=== PATIENT | female | born 1980 | race Caucasian/White ===

== ENCOUNTER 2017-10-05 05:31 | Emergency (ER) | payer BC ==
[~2017-10-05] VITALS: Ht 160 cm; Wt 79.5 kg
[~2017-10-05 05:31] MED LIST: ALD250 PO; LABE1TAB28 PO; SERT-234 PO
[2017-10-05 05:35] VITALS: Ht 160 cm; Wt 79.5 kg
[2017-10-05] MEDS ORDERED: MoRPHine SULFATE 4 MG/ML 1 ML CARP\\VIAL IV STA (05:43)
[2017-10-05] MEDS ORDERED: ONDANSETRON INJ 2 MG/ML 2 ML VIAL IV STA (05:43)
[2017-10-05] MEDS ORDERED: KETOROLAC TROMETHAMINE 30 MG/ML VIAL IV STA (05:43)
[2017-10-05 06:04] LABS: BASO % 0.5 %; BASO ABS # 0.05 K/uL (0-0.2); COMPLETE YES; EOS % 1.5 %; HEMATOCRIT 34.6 % (37-47); IG% 0.4 %; LYMPH % 20.3 %; LYMPH ABS # 2.08 K/uL (1.2-3.4); MEAN CELL VOLUME 76.7 fL (80-100); MEAN CORPUSCULAR HEMOGLOBIN 23.9 pg (25-34); MEAN CORPUSCULAR HGB CONC 31.2 g/dl (32-36); MEAN PLATELET VOLUME 9.6 fL (7.4-10.4); NEUT % 67.3 %; PLATELET COUNT 250 K/uL (130-400); RED BLOOD COUNT 4.51 M/uL (4.2-5.4); WHITE BLOOD COUNT 10.27 K/uL (4.8-10.8)
[2017-10-05] MEDS ORDERED: [UNRECOGNIZED DRUG - CODE] PO (06:07)
[2017-10-05 06:14] LABS: URINE APPEARANCE CLOUDY (CLEAR); URINE BILIRUBIN NEG (NEG); URINE COLOR YELLOW; URINE EPITHELIAL CELL AUTO >30 /lpf (0-5); URINE NITRITE NEG (NEG); URINE SPECIFIC GRAVITY 1.012 (1.000-1.030); UROBILINOGEN NEG (NEG); ZZUR CULT IF INDIC CLEAN CATCH YES
[2017-10-05] MEDS ORDERED: HYDROmorphone INJ 1 MG/ML SYR IV STA (06:15)
[2017-10-05] MEDS ORDERED: LABETALOL HCL IV 5 MG/ML 20ML IV STA ×3 (06:15→07:12)
[2017-10-05] MEDS ORDERED: METHYLDOPA 250 MG TAB PO STA (06:16)
[2017-10-05 06:26] LABS: BUN/CREATININE RATIO 10.1 (10-20); CALCIUM 8.8 mg/dl (8.5-10.1); CREATININE 1.04 mg/dl (0.60-1.20); POTASSIUM 3.2 mmol/L (3.5-5.1)
[2017-10-05] MEDS ORDERED: SODIUM CHLORIDE 0.9% 1000ML 1,000 ML IV STA (06:52)
[2017-10-05 06:53] LABS: MANUAL MICROSCOPIC REQUIRED? NO; REVIEW REQ? YES
[2017-10-05 07:00] LABS: SULFASALICYLIC ACID NEG (NEG)
--- NOTE | 2017-10-05 07:05 | DIAGNOSTIC IMAGING REPORT ---
PELVIC ULTRASOUND, TRANSABDOMINAL AND TRANSVAGINAL HISTORY: Right-sided pelvic pain. Abnormal CT. r/o torsion COMPARISON: None. FINDINGS: Uterus: Unremarkable. Endometrial stripe: 1.4 cm in thickness. Right ovary: Asymmetrically enlarged measuring 6.7 x 5.8 x 4.9 cm. This appears to be edematous and demonstrates minimal to no blood flow. Therefore, this favors ovarian torsion. There are few small complex cysts and a few small follicles. Left ovary: Normal in size and demonstrates normal color flow. Miscellaneous:Small amount of pelvic free fluid. IMPRESSION: 1. Asymmetrically enlarged right ovary which appears to be edematous and demonstrates minimal to no blood flow. Therefore this is highly suspicious for an ovarian torsion. 2. Normal left ovary. 3. Small amount of pelvic free fluid. 4. These findings were discussed with Dr. Esparza at 7:03 AM on 10/05/2017. Electronically signed by: Herbie Strange M.D. 10/05/2017 7:04 AM Dictated Date/Time: 10/05/2017 7:01 AM
--- NOTE | 2017-10-05 07:09 | EMERGENCY ROOM VISIT NOTE ---
History First contact with patient: 05:42 Chief Complaint: ABDOMINAL PAIN Stated Complaint: ABD PAIN History of Present Illness The patient is a 37 year old female who presents to the Emergency Room with complaints of sudden onset of right side pain that radiates to her groin for the past few hours described as severe, 7 out of 10. Nothing makes it better or worse. No history kidney stones. Patient denies chest pain, dyspnea, fever , chills, cough, congestion, vomiting, diarrhea, urinary symptoms. Menstrual cycle was 3 weeks ago. Patient did not take her blood pressure medicine today. Review of Systems See HPI for pertinent positives & negatives. A total of 10 systems reviewed and were otherwise negative. Past Medical/Surgical History Hypertension, depression Social History Smoking Status: Current Every Day Smoker Alcohol Use: occasionally Drug Use: none Marital Status: Housing Status: lives with significant other Occupation Status: employed Current/Historical Medications Scheduled Labetalol (Normodyne), 400 MG PO DAILY Methyldopa (Aldomet), 500 MG PO DAILY Sertraline (Zoloft), 200 MG PO DAILY Allergies Coded Allergies: No Known Allergies (Unverified , 10/05/17) Physical Exam Vital Signs Date Time Temp Pulse Resp B/P (MAP) Pulse Ox O2 Delivery O2 Flow Rate FiO2 10/05/17 07:00 75 16 225/127 99 Room Air 10/05/17 06:08 74 18 228/130 100 Room Air 10/05/17 05:35 36.5 86 18 204/119 100 Room Air Physical Exam VITALS: Vitals are noted on the nurse's note and reviewed by myself. Vital signs hypertensive GENERAL: White female crying in pain, in no acute distress, nondiaphoretic, well -developed well-nourished. SKIN: The skin was without rashes, erythema, edema, or bruising. There is no tenting of the skin. Capillary reflex less than 2 seconds. HEAD: Normocephalic atraumatic. EARS: External auditory canals clear, tympanic membranes pearly landis without erythema or effusion bilaterally. EYES: Pupils equal round and reactive to light and accommodation. Conjunctivae without injection, sclerae without icterus. Extraocular movements intact. NOSE: Patent, turbinates without inflammation or discharge. MOUTH: Mucous membranes moist. Pharynx without erythema or exudate. Uvula midline. Airway patent. Tongue does not deviate. NECK: Supple without nuchal rigidity. No lymphadenopathy. No thyromegaly. Cervical spine is nontender. No JVD. HEART: Regular rate and rhythm without murmurs gallops or rubs. LUNGS: Clear to auscultation bilaterally without wheezes, rales or rhonchi. No dullness to percussion. No retractions or accessory muscle use. ABDOMEN: Positive bowel sounds x 4. Normal tympanic percussion. Soft, minimally tender right sided flank pain, without masses or organomegaly. Britton sign negative. No guarding or rebound tenderness. No CVA tenderness MUSCULOSKELETAL: No muscle atrophy, erythema, or edema noted. NEURO: Patient was alert and oriented to person place and time. Normal sensation to light and sharp touch. No focal neurological deficits. Medical Decision & Procedures Laboratory Results 10/05/17 05:49 Red Blood Count 4.51, Mean Corpuscular Volume 76.7, Mean Corpuscular Hemoglobin 23.9, Mean Corpuscular Hemoglobin Concent 31.2, Mean Platelet Volume 9.6, Neutrophils (%) (Auto) 67.3, Lymphocytes (%) (Auto) 20.3, Monocytes (%) (Auto) 10.0, Eosinophils (%) (Auto) 1.5, Basophils (%) (Auto) 0.5, Neutrophils # (Auto ) 6.92, Lymphocytes # (Auto) 2.08, Monocytes # (Auto) 1.03, Eosinophils # (Auto ) 0.15, Basophils # (Auto) 0.05 10/05/17 05:49 Test 10/05/17 05:45 10/05/17 05:49 Urine Color YELLOW Urine Appearance CLOUDY (CLEAR) Urine pH 8.0 (4.5-7.5) Urine Specific [place] 1.012 (1.000-1.030) Urine Protein NEG (NEG) Urine Glucose (UA) NEG (NEG) Urine Ketones NEG (NEG) Urine Occult Blood NEG (NEG) Urine Nitrite NEG (NEG) Urine Bilirubin NEG (NEG) Urine Urobilinogen NEG (NEG) Urine Leukocyte Esterase NEG (NEG) Urine Test NEG (NEG) White Blood Count 10.27 K/uL (4.8-10.8) Red Blood Count 4.51 M/uL (4.2-5.4) Hemoglobin 10.8 g/dL (12.0-16.0) Hematocrit 34.6 % (37-47) Mean Corpuscular Volume 76.7 fL (80-100) Mean Corpuscular Hemoglobin 23.9 pg (25-34) Mean Corpuscular Hemoglobin Concent 31.2 g/dl (32-36) Platelet Count 250 K/uL (130-400) Mean Platelet Volume 9.6 fL (7.4-10.4) Neutrophils (%) (Auto) 67.3 % Lymphocytes (%) (Auto) 20.3 % Monocytes (%) (Auto) 10.0 % Eosinophils (%) (Auto) 1.5 % Basophils (%) (Auto) 0.5 % Neutrophils # (Auto) 6.92 K/uL (1.4-6.5) Lymphocytes # (Auto) 2.08 K/uL (1.2-3.4) Monocytes # (Auto) 1.03 K/uL (0.11-0.59) Eosinophils # (Auto) 0.15 K/uL (0-0.5) Basophils # (Auto) 0.05 K/uL (0-0.2) RDW Standard Deviation 48.3 fL (36.4-46.3) RDW Coefficient of Variation 17.1 % (11.5-14.5) Immature Granulocyte % (Auto) 0.4 % Immature Granulocyte # (Auto) 0.04 K/uL (0.00-0.02) Anion Gap 10.0 mmol/L (3-11) Est Creatinine Clear Calc Drug Dose 74.0 ml/min Estimated GFR () 79.5 Estimated GFR (Non- 68.6 BUN/Creatinine Ratio 10.1 (10-20) Calcium Level 8.8 mg/dl (8.5-10.1) Medications Administered Medications (Trade) Dose Ordered Sig/[place] Route Start Time Stop Time Status Last Admin Dose Admin Ketorolac Tromethamine (Toradol Inj) 30 mg NOW STAT IV 10/05/17 05:43 10/05/17 05:45 DC 10/05/17 05:53 30 MG Ondansetron HCl (Zofran Inj) 4 mg NOW STAT IV 10/05/17 05:43 10/05/17 05:45 DC 10/05/17 05:52 4 MG Morphine Sulfate (MoRPHine SULFATE INJ) 4 mg NOW STAT IV 10/05/17 05:43 10/05/17 05:45 DC 10/05/17 05:53 4 MG Hydromorphone HCl (Dilaudid Inj) 1 mg NOW STAT IV 10/05/17 06:15 10/05/17 06:17 DC 10/05/17 06:24 1 MG Labetalol HCl (Normodyne IV) 10 mg NOW STAT IV 10/05/17 06:15 10/05/17 06:17 DC 10/05/17 06:26 10 MG Sodium Chloride 1,000 ml @ 999 mls/hr Q1H1M STAT IV 10/05/17 06:52 10/05/17 07:52 10/05/17 06:52 999 MLS/HR ED Course Prior records/ancillary studies reviewed. Triage Nursing notes reviewed. Additional history obtained from family. The patient's history was concerning for abdominal pain. Differential diagnosis: Etiologies such as appendicitis, torsion, cyst, diverticulitis, PUD, biliary pathology, UTI, pancreatitis, obstruction, mesenteric ischemia, aortic pathology , infections, inflammatory bowel disease, renal colic, as well as others were entertained. Physical examination findings: As above. ER treatment provided: Morphine, Toradol, Zofran, Dilaudid, labetalol On reassessment the patient felt better. Diagnostics interpreted by me: The labs revealed anemia, negative . Negative urine Imaging studies: HISTORY: Right-sided pelvic pain. Abnormal CT. r/o torsion COMPARISON: None. FINDINGS: Uterus: Unremarkable. Endometrial stripe: 1.4 cm in thickness. Right ovary: Asymmetrically enlarged measuring 6.7 x 5.8 x 4.9 cm. This appears to be edematous and demonstrates minimal to no blood flow. Therefore, this favors ovarian torsion. There are few small complex cysts and a few small follicles. Left ovary: Normal in size and demonstrates normal color flow. Miscellaneous:Small amount of pelvic free fluid. IMPRESSION: 1. Asymmetrically enlarged right ovary which appears to be edematous and demonstrates minimal to no blood flow. Therefore this is highly suspicious for an ovarian torsion. 2. Normal left ovary. 3. Small amount of pelvic free fluid. 4. These findings were discussed with Dr. Esparza at 7:03 AM on 10/05/2017. Electronically signed by: Herbie Strange M.D. CT ABDOMEN & PELVIS Without Contrast: No obstructing urinary tract calculus or hydronephrosis. Small nonobstructing left renal calculi. Mild bladder wall thickening versus partial distention. Correlate for cystitis. Asymmetric enlarged right ovary with multiple peripheral follicles and a dominant 2.8 cm follicle or cyst. Small amount of free fluid surrounding it and pelvis. May represent right ovarian torsion. Possible twisting of the pedicle. Series 3, image 323 and series 3S, image 67 etc. Normal appendix. Colonic diverticulosis. Small hiatal hernia Radiologist: Juancarlos Goyal M.D. Consultation: A consultation was placed with the OB, Dr Hernandez. The case was discussed and diagnostics were reviewed. The patient was evaluated in the ER for further treatment. Exam and history seem consistent with ovarian torsion with elevated blood pressure. OB was paged and will come down and evaluate the patient. They will come down and evaluate the patient. Patient is given multiple rounds of labetalol for her hypertension. She last ate at 8 PM. Nothing to drink since. By the evaluation outlined above emergent etiologies such as appendicitis, diverticulitis, PUD, biliary pathology, UTI, pancreatitis, obstruction, mesenteric ischemia, aortic pathology, infections, inflammatory bowel disease, renal colic, as well as others were deemed relatively unlikely. The pt informed about the findings as listed above. All questions were answered and pleased with the treatment. Case reviewed with my attending. Medical Decision As above Impression Primary Impression: Torsion of right ovary and ovarian pedicle Departure Information Dispostion Being Evaluated By Surgeon Condition GOOD Referrals Sadi Christy M.D. ([facility]) (PCP) Patient Instructions My [facility]
--- NOTE | 2017-10-05 07:31 | DIAGNOSTIC IMAGING REPORT ---
ABDOMEN AND PELVIS CT WITHOUT CONTRAST CT DOSE: 838.12 mGy.cm HISTORY: right flank pain TECHNIQUE: Multiaxial CT images of the abdomen and pelvis were performed without the use of intravenous and oral contrast according to the standard department stone protocol. A dose lowering technique was utilized adhering to the principles of ALARA. COMPARISON STUDY: None. FINDINGS: The lung bases are clear. No fractures within the visualized osseous structures. The unenhanced liver, gallbladder, spleen, adrenal glands, and pancreas are unremarkable. No retroperitoneal lymphadenopathy. There is a punctate stone within the left kidney. No right renal calculi. No ureteral calculi. No hydronephrosis. The bladder is unremarkable. Suboptimal evaluation for bowel pathology due to the lack of intravenous and oral contrast. However, there is no definite bowel wall thickening or obstruction. There are few colonic diverticula. Normal appendix. Small amount of pelvic free fluid. The uterus and left ovary are within normal limits. There is an enlarged and edematous appearing right ovary with peripheral follicles. This measures 6.2 cm. IMPRESSION: 1. Enlarged and edematous appearing right ovary which is concerning for ovarian torsion. This is better appreciated on the same day pelvic ultrasound. 2. Small amount of pelvic free fluid. 3. Left-sided nephrolithiasis. No hydronephrosis. Electronically signed by: Herbie Strange M.D. 10/05/2017 7:29 AM Dictated Date/Time: 10/05/2017 7:27 AM
[2017-10-05] MEDS ORDERED: DEXAMETHASONE SOD INJ 4 MG/ML VIAL ONE (07:36)
[2017-10-05] MEDS ORDERED: PROPOFOL IV EMULSION 10 MG/ML 20 ML VIAL IV ONE (07:36)
[2017-10-05] MEDS ORDERED: LIDOCAINE HCL 2% 2 ML VIAL (20MG/ML) ONE (07:36)
[2017-10-05] MEDS ORDERED: GLYCOPYRROLATE INJ 0.2 MG/ML VIAL ONE (07:36)
[2017-10-05] MEDS ORDERED: NEOSTIGMINE METHYLSULFATE 5 MG/5 ML SYR ONE (07:36)
[2017-10-05] MEDS ORDERED: ONDANSETRON INJ 2 MG/ML 2 ML VIAL ONE (07:36)
[2017-10-05] MEDS ORDERED: FENTANYL CITRATE INJ 50 MCG/1 ML 2 ML VIAL ONE (07:37)
[2017-10-05] MEDS ORDERED: MIDAZOLAM HCL 1 MG/ML 2ML VIAL ONE (07:37)
[2017-10-05 07:42] VITALS: O2SAT 97
[2017-10-05] MEDS ORDERED: ONDANSETRON INJ 2 MG/ML 2 ML VIAL IV PRN ×2 (07:45→09:45)
[2017-10-05] MEDS ORDERED: PHENYLEPHRINE 100MCG/ML 5ML SYR IV PRN (07:45)
[2017-10-05] MEDS ORDERED: ATROPINE SULFATE 0.1 MG/ML 5ML SYR IV PRN (07:45)
[2017-10-05] MEDS ORDERED: EpHEDrine SULFATE INJ 50 MG/ML AMP IV PRN (07:45)
[2017-10-05] MEDS ORDERED: HYDROmorphone INJ 2 MG/ML SYR/VIAL IV PRN (07:45)
[2017-10-05] MEDS ORDERED: BUPIVACAINE 0.5 % 5 MG/1 ML MPF 30ML VIAL ONE (07:47)
--- NOTE | 2017-10-05 07:47 | HISTORY & PHYSICAL EXAMINATION ---
DATE OF ADMISSION: 10/05/2017 HISTORY OF PRESENT ILLNESS: Yulia presented to the ER with acute right sided left lower quadrant pain and it was intense 10/10 and she did not have an appetite and had some nausea. She presented to the Emergency Room in the icer air conditioning, ultrasound was performed revealing a torsed right ovary. In fact report suggests no blood flow to the ovary and suggested high suspicion to it. The overall size is 6.7 x 5.8 x 4.9 cm. The other ovary, left ovary is normal. PAST MEDICAL HISTORY: The patient is known to our practice, has had 2 prior vaginal deliveries with us. She also has a history of hypertension in the past and takes labetalol mouth and methyldopa. SOCIAL HISTORY: She is . FAMILY HISTORY: Noncontributory. REVIEW OF SYSTEMS: Negative. PHYSICAL EXAMINATION: VITAL SIGNS: Her blood pressure is elevated which is being treated by the Emergency Room with IV labetalol. CHEST: Clear. CARDIOVASCULAR: Normal rate and rhythm. No audible murmur. ABDOMEN: Tender, especially in the right lower quadrant. Bowel sounds positive. No masses palpated. PELVIC: Deferred at this time as she is exquisitely tender and we have ultrasound report. IMPRESSION AND PLAN: I have recommended laparoscopy with possible removal of the right ovary and fallopian tube. We did talk about possible untwisting of the ovary as well as an option if that was possible depending on the viability of the ovary. We also discussed sometimes that in fact this may be the left ovary which is pushing over the right side, so I did consent her for removal of 1 ovary which was the ovary which was diseased obviously. We would assess whether this was left or right, it is suspected to be the right. Discussed risks including risks of infection, bleeding, injury to internal organs, hernia and discussed alternatives, although with torsion I really feel this is the recommended approach and she agrees.
[2017-10-05] MEDS ORDERED: CEFAZOLIN 2000MG IV PUSH 10 ML IV SCH (08:00)
[2017-10-05] MEDS ORDERED: CEFAZOLIN SOD 1 GM VIAL ONE (08:44)
[2017-10-05] MEDS ORDERED: LABETALOL HCL IV 5 MG/ML 20ML IV ONE ×4 (08:44→10:29)
[2017-10-05] MEDS ORDERED: ROCURONIUM BROMIDE 10 MG/ML 5 ML VIAL IV ONE (09:10)
[2017-10-05] MEDS ORDERED: SODIUM CHLORIDE 0.9% 1000ML 1,000 ML IV SCH (09:32)
--- NOTE | 2017-10-05 09:34 | [facility] Post Operative Brief Note ---
Immediate Operative Summary Operative Date Oct 05, 2017. Pre-Operative Diagnosis Right Ovarian Torsion Post-Operative Diagnosis Right Ovarian Torsion Procedure(s) Performed Laparoscopic Right Salpingo-Oopherectomy Surgeon Dr. Isabel Hernandez Rigging Man Surgeon(s) Dr. Isabel Su Estimated Blood Loss 10mL Findings Torsed, non viable right ovary and tube Specimens A: Right ovary & Right Fallopian Tube Drains None Anesthesia General Complication(s) None Disposition Recovery Room / PACU
[2017-10-05] MEDS ORDERED: OXYC-57 PO ×3 (09:35→09:50)
[2017-10-05] MEDS ORDERED: MTR600X PO ×3 (09:35→09:50)
--- NOTE | 2017-10-05 09:35 | Discharge Instructions ---
Discharge Instructions Date of Service Oct 05, 2017. Admission Reason for Admission: Abd Pain Discharge Discharge Diagnosis / Problem: ovarian torsion Discharge Goals Goal(s): Routine recovery after surgery Activity Recommendations Activity Limitations: per Instructions/Follow-up section . Instructions / Follow-Up Instructions / Follow-Up ACTIVITY RECOMMENDATIONS: * Rest the first 2-3 days. You should be back to your normal activity levels by day 3. * No heavy lifting for 2 weeks. * No intercourse, tampons or douching for 1-2 weeks. * You may shower the next day. * Do not drive anytime that you are taking narcotic pain medicines. RETURN TO SCHOOL/WORK: * May return to school or work after 2-3 days. DIET: Nausea may occur in the immediate post-operative period. If so, take clear liquids such as tea, bouillon, apple juice until all nausea has subsided, then resume usual diet. MEDICATIONS: Resume previous medications unless instructed otherwise by your surgeon. Ibuprofen 200mg 2-3 tablets every 4-6 hours as needed -- OR -- Aleve 2 tablets every 8-12 hours as needed for post-operative discomfort Medications are over the counter. Tylenol may be used if above medications are contraindicated or not preferred. Medication should be taken with food or milk. Do not take on an empty stomach. SPECIAL CARE INSTRUCTIONS: * Check temperature twice daily for one week. report any elevation over 101 degrees. * You may experience some vagina spotting and/or bleeding. This is normal for 1 -2 weeks and should not be heavier than a normal period. If it is unusual in amount, call your physician. * Post-operative discomfort may consist of a sore throat, a "bloated" feeling and pain in the shoulders. these are normal symptoms, which usually only last for 2-3 days. * Remove band-aids tomorrow and shower. There is no need to replace band-aids unless there is drainage or discomfort. FOLLOW UP VISIT: Call your doctor's office for a post-operative 2 week visit if not already scheduled. Current Hospital Diet Patient's current hospital diet: Discharge Diet Recommended Diet: Regular Diet Procedures Procedures Performed: Laparoscopic Right Salpingo-Oopherectomy Pending Studies Studies pending at discharge: no Medical Emergencies . Who to Call and When: Medical Emergencies: If at any time you feel your situation is an emergency, please call 911 immediately. . Non-Emergent Contact Non-Emergency issues call your: Community Health Advisor . . "Provider Documentation" section prepared by Travis Hernandez. . VTE Core Measure Inpt VTE Proph given/why not?: Jason Khan, SCD's
[2017-10-05] MEDS ORDERED: IBUPROFEN 600 MG TAB PO PRN (09:45)
[2017-10-05] MEDS ORDERED: KETOROLAC TROMETHAMINE 30 MG/ML VIAL IV. PRN (09:45)
[2017-10-05] MEDS ORDERED: OXYCODONE/ACETAMINOPHEN 5-325 TAB PO PRN ×2 (09:45)
[2017-10-05] MEDS ORDERED: PROMETHAZINE HCL INJ 25 MG in SODIUM CHLORIDE 0.9% 50ML 50 ML IV PRN (09:45)
--- NOTE | 2017-10-05 10:04 | Anesthesiology Progress Note ---
Anesthesia Post Op Note Date & Time Oct 05, 2017 at 10:04 Vital Signs Pain Intensity: 0 Vital Signs Past 12 Hours Date Time Temp Pulse Resp B/P (MAP) Pulse Ox O2 Delivery O2 Flow Rate FiO2 10/05/17 09:47 36.5 75 16 159/88 99 Oxymask 10 10/05/17 07:51 68 192/117 10/05/17 07:42 37.0 67 16 192/115 97 10/05/17 07:38 78 16 202/119 10/05/17 07:28 73 16 207/123 97 10/05/17 07:10 68 16 192/115 96 10/05/17 07:01 79 10/05/17 07:00 75 16 225/127 99 Room Air 10/05/17 06:08 74 18 228/130 100 Room Air 10/05/17 05:35 36.5 86 18 204/119 100 Room Air Notes Mental Status: alert / awake / arousable, participated in evaluation Pt Amnestic to Procedure: Yes Nausea / Vomiting: adequately controlled Pain: adequately controlled Airway Patency, RR, SpO2: stable & adequate BP & HR: stable & adequate Hydration State: stable & adequate Anesthetic Complications: no major complications apparent
--- NOTE | 2017-10-05 10:08 | OPERATIVE REPORT ---
DATE OF OPERATION: 10/05/2017 PREOPERATIVE DIAGNOSIS: Right ovarian torsion. POSTOPERATIVE DIAGNOSIS: Right ovarian torsion. PROCEDURE: Laparoscopic right salpingo-oophorectomy. SURGEON: Dr. Hernandez. BRICK CARRIER: Dr. Su. ESTIMATED BLOOD LOSS: 10 mL FINDINGS: Torsed nonviable right ovary and tube. SPECIMENS: Right ovary and fallopian tube. DRAINS: None. ANESTHETIC: General. COMPLICATIONS: None. DISPOSITION: Recovery room. The patient was given a general anesthetic, prepped and draped in dorsolithotomy position in [facility]. IV Ancef given as preoperative antibiotics as it was not an emergency surgery. Mayberry catheter placed in her bladder and a uterine manipulator with an acorn device was attached to her cervix with an Allis clamp. Gloves changed and a subumbilical incision made with scalpel. Using Willoughby open technique, we did a cut down using scalpel and then Metzenbaum to cut through the fascia in the midline, splitting the rectus muscles and entering the peritoneal cavity without difficulty. Blunt-tipped Temo trocar then placed into the peritoneal cavity, balloon inflated to secure the port and then CO2 gas used to insufflate the abdomen. FINDINGS: Upper abdomen normal, no sign of visceral organ injury. Deep Trendelenburg position obtained. The right adnexa was abnormal. It was torsed. It was nonviable. It was purple and dusky. Pictures taken for documentation. It looked like it was pretty clear as well that the IP ligament had torsed as well. With this and with the patient's consent to remove the right ovary, we made a clinical decision to remove the right ovary. Laparoscopic 5-mm port placed in the left and right side. At this stage, I was then able to use a Harmonic scalpel and a nontraumatic grasper. We elevated the ovary, identified the ureter on the right side. It was well away from the IP ligament. I was able to use the Harmonic scalpel to coagulate and transect the ovarian artery and vein proximal to the right ovary. Care was taken to elevate the ovary and keep it away from the ureter. Same process on the distal blood supply and then ovary was removed from its attachments on the pelvic sidewall as well. Once it was free, I could see the ureter was peristalsing nicely below it, and we were well away from the site of surgery. Ovary was placed into the cul-de-sac for a second and then we placed a 5-mm scope after removing the Harmonic scalpel and then a 10-mm bag was then placed through the umbilical port. The specimen was then placed in the bag and then the bag was pulled up to the umbilical incision. This specimen was removed in pieces, but inside of the bag, so there was no spillage and then I was finally able to remove the whole specimen inside the bag once I had pared down the size of the specimen. At this stage, we visualized the pelvis, the ovarian pedicles were hemostatic and we did do a low carbon dioxide test. After generous irrigation and suction with sterile saline, case was complete. I removed the instruments and ports under direct visualization, gas was allowed to escape. Fascia and the umbilical incision injected with 0.5% Marcaine as well as the 5-mm incisions. Fascia closed carefully with several [id number] Vicryls and then subcutaneous deep fat closure as well on the umbilical incision, 4-0 subcuticular Monocryl used to close the skin incisions and Dermabond. Instruments removed from the cervix and vagina. Mayberry catheter removed and urine was clear at the end of the procedure. I attest to the content of the Intraoperative Record and any orders documented therein. Any exception s are noted below.
[2017-10-05] MEDS ORDERED: NURSING VERBAL MED ORDER ONE ×2 (10:45→11:00)
[2017-10-05] MEDS ORDERED: HydrALAZINE HCL 20 MG/ML VIAL ONE (11:00)
[2017-10-05 11:27] VITALS: BP 152/91; TEMP 36.6; O2SAT 97
[2017-10-05 11:37] VITALS: PULSE 81
[2017-10-05 12:06] VITALS: BP 164/95; TEMP 36.5; O2SAT 97
== END 2017-10-05 07:56 | disposition home or self-care (01) ==
LOC: C.EDB 05:32
DX: N83.511 Torsion of right ovary and ovarian pedicle (principal); I10 Essential (primary) hypertension; F32.9 Major depressive disorder, single episode, unspecified; Z79.899 Other long term (current) drug therapy

== ENCOUNTER → 2018-01-02 | Outpatient (CLI) | payer BC ==
[~2018-01-02] MED LIST changes: -ALD250 PO; +MTR600X PO; +OXYC-57 PO; +[UNRECOGNIZED DRUG - CODE] PO
== END | disposition home or self-care (01) ==
LOC: C.PAPS 16:18
PROVIDERS: ATTEND Obstetrics & Gynecology
DX: Z01.419 Encounter for gynecological examination (general) (routine) without abnormal findings (principal)

== ENCOUNTER → 2018-01-16 | Outpatient (CLI) | payer BC | END | disposition home or self-care (01) | LOC: C.LABSPEC 13:28 | PROVIDERS: ATTEND Physician Assistant | DX: Z30.430 Encounter for insertion of intrauterine contraceptive device (principal) ==

== ENCOUNTER 2019-02-12 09:51 | Inpatient (IN) ==
[2019-02-12 10:51] LABS: Basophils # (auto) 0.05 K/uL (0-0.2); Basophils % (auto) 0.7 %; Eosinophils # (auto) 0.12 K/uL (0-0.5); Eosinophils % (auto) 1.7 %; Hematocrit (blood only) 42.3 % (37-47); Hemoglobin 14.9 g/dL (12.0-16.0); Immature Granulocytes # (auto) 0.01 K/uL (0.00-0.02); Immature Granulocytes % (auto) 0.1 %; Lymphocytes # (auto) 1.49 K/uL (1.2-3.4); Lymphocytes % (auto) 21.1 %; Mean Corpuscular Hgb Conc 35.2 g/dL (32-36); Mean Corpuscular Volume 96.6 fL (80-100); Mean Platelet Volume 11.1 fL (7.4-10.4); Monocytes % (auto) 8.5 %; Neutrophils % (auto) 67.9 %; Platelet Count 198 K/uL (130-400); RDW Coefficient of Variation 13.3 % (11.5-14.5); RDW Standard Deviation 46.6 fL (36.4-46.3); Red Blood Count 4.38 M/uL (4.2-5.4); White Blood Count 7.07 K/uL (4.8-10.8)
--- NOTE | 2019-02-12 11:00 | XRay Report ---
XR chest 1V portable CLINICAL HISTORY: Chest Pain dyspnea COMPARISON STUDY: No previous studies for comparison. FINDINGS: The bones soft tissues and hemidiaphragms are normal. The cardiomediastinal silhouette is n ormal. The lungs are clear. The pulmonary vasculature is normal. IMPRESSION: Negative chest. The above report was generated using voice recognition software. It may contain grammatical, syntax or spelling errors. Electronically signed by: Diego Ramey M.D. 02/12/2019 10:58 AM
[2019-02-12 11:15] LABS: Albumin Level 4.1 gm/dl (3.4-5.0); BUN Creatinine Ratio 11.2 (10-20); Calcium 9.5 mg/dl (8.5-10.1); Est GFR (Non-African American) 53.5; Potassium 3.4 mmol/L (3.5-5.1)
[2019-02-12 11:18] LABS: Albumin Globulin Ratio 1.1 (0.9-2); Bilirubin,Total 0.9 mg/dl (0.2-1); Globulin 3.9 gm/dl (2.5-4.0)
[2019-02-12] MEDS ORDERED: cloNIDine HCl 0.1 MG TAB PO ONE (11:44)
[2019-02-12] MEDS ORDERED: LABETALOL HCL IV 5 MG/ML 20ML IV STA ×2 (12:23→16:38)
--- NOTE | 2019-02-12 12:36 | History & Physical Report ---
Date of Service February 12, 2019 Assessment & Plan (1) Hypertensive urgency: This is a 38-year-old female with a PMH of hypertension and depression who presents from cardiology clinic with hypertensive urgency/emergency with BP of 250/140. -In setting of long-standing history of hypertension for the past 20 years -Renal artery duplex was performed in 2006, which was normal -Current regimen of Labetalol 200mg BID (but only taking HS), Methyldopa (has been on backorder for 3 weeks) -Denies any lightheadedness, visual changes, nausea, vomiting or chest pain -EKG with T wave abnormalities in lateral leads, troponin normal, no chest pain -Given Clonidine 0.1mg PO in the ED as well as IV Labetalol 10mg x 1 with repeat BP was 196/122 -Trend troponin, monitor on telemetry, repeat EKG ordered, 2D echo -Discussed with Dr. Jason. Will transition to amlodipine and Lopressor, with clonidine 0.1mg Q6H PRN for SBP >170 (2) Acute kidney injury: In the setting of hypertensive urgency . Cr of 1.27 (baseline Cr ~0.9) -Monitor with daily BMP -Avoid nephrotoxic agents (3) Depression: Stable. Continue Zoloft DVT Ppx: SCDs Code status: FULL PCP: Jaelyn Dispo: Admitted to telemetry. Plan to return home once medically stable. Patient seen in collaboration with Dr. Zamora. Please see addendum. History of Present Illness Chief Complaint: hypertensive emergency Primary Care Provider: Sadi Christy MD This is a 38-year-old female with a PMH of hypertension and depression who presents from cardiology clinic with hypertensive urgency/emergency. Patient with long-standing history of hypertension for the past 20 years. Renal artery duplex was performed in 2006, which was normal. Has been maintained on methyldopa and labetalol for the past 7 years successfully, until 3 weeks ago when methyldopa was on back order. Patient does not check blood pressure at home but went to clinic appointment today to discuss antihypertensive medication and BP was found to be 250/140 with similar repeat pressures. Denies any headache, vision changes, chest pain or lower extremity edema. An EKG was performed in clinic, which showed normal sinus rhythm with inferior T wave depression/inversion due to possible strain. Patient was sent to ED for further treatment of blood pressure and EKG changes. Patient is prescribed labetalol 200 twice daily but has only been taking 200 mg at night. Reports trying metoprolol in the past as well as lisinopril, which was discontinued due to at that time. Was given Clonidine 0.1mg PO in the ED as well as IV Labetalol 10mg x 1. Repeat BP was 196/122. Endorsing mild frontal headache initially but it has since improved. Denies lightheadedness, visual changes, chest pain, shortness of breath, nausea, vomiting, abdominal pain or lower extremity swelling. Allergies Allergy/AdvReac Type Severity Reaction Status Date / Time No Known Allergies Allergy Unverified 02/12/19 10:21 Home Medications Home Medications Medication Instructions Recorded Confirmed Type sertraline [Zoloft] 50 mg PO DAILY 02/12/19 02/12/19 History amlodipine 10 mg PO DAILY #30 tab 02/15/19 Rx labetalol 400 mg PO BID 30 Days #120 tab 02/15/19 Rx spironolactone 25 mg PO QAM 30 Days #30 tab 02/15/19 Rx Past Med/Surg History Medical History Depression (Chronic) HTN (hypertension) (Chronic) Ovarian torsion (Resolved) Surgical History S/P removal of right ovary (Resolved) 2/2 ovarian torsion in 2017 Family History Father Crohn's disease Lung cancer Mother Breast cancer Hypertension Social History Preferred Language: Norwegian Beliefs That Will Affect Care: None Current Living Situation: Spouse and Family Other Information That Helps Us Care for You: No Feels Safe at Home: Yes Safety Concerns: Feels Safe At This Time Smoking Status: Former smoker Hx Alcohol Use: Yes Hx Substance Use: No Review of Systems All systems reviewed & are unremarkable except as noted in HPI & below Physical Exam Vital Signs (Past 24 Hours): Last Vital Signs Temp 36.6 C 02/12/19 09:53 Pulse 92 H 02/12/19 11:50 Resp 16 02/12/19 11:50 BP 231/134 H 02/12/19 11:50 Pulse Ox 99 02/12/19 09:53 Physical Exam: General Appearance: WD/WN, no apparent distress Head: normocephalic, atraumatic Eyes: normal inspection, PERRL, EOMI ENT: hearing grossly normal, pharynx normal (moist mucous membranes) Neck: supple, no JVD, no adenopathy Respiratory/Chest: lungs clear to auscultation. No wheezes, rales or rhonci. No respiratory distress or accessory muscle use Cardiovascular: regular rate, rhythm, no murmur, normal peripheral pulses Abdomen/GI: normal bowel sounds, soft, non-tender to palpation Extremities/Musculoskelatal: normal inspection, no calf tenderness, normal capillary refill, no pedal edema Neurologic/Psych: alert, normal mood/affect, oriented x 3 Skin: normal color, warm/dry Results & Data Laboratory Results Short CBC 02/12/19 Range/Units 10:35 WBC 7.07 (4.8-10.8) K/uL Hgb 14.9 (12.0-16.0) g/dL Hct 42.3 (37-47) % Plt Count 198 (130-400) K/uL BMP 02/12/19 10:35 Sodium 137 Potassium 3.4 L Chloride 103 Carbon Dioxide 28 BUN 14 Creatinine 1.27 H Glucose 86 Calcium 9.5 Liver Function 02/12/19 Range/Units 10:35 Total Bilirubin 0.9 (0.2-1) mg/dl AST 31 (15-37) U/L ALT 41 (12-78) U/L Alkaline Phosphatase 114 (45-117) U/L Albumin 4.1 (3.4-5.0) gm/dl Diagnostic Findings CXR: IMPRESSION: Negative chest. ECG Rhythm: normal sinus Change: the following changes noted Additional Comments: Nonspecific T wave abnormality now evident in Lateral leads Supervising Physician Co-Signing Physician Notes Pt was seen and examined. Agreed with Bailee ANTHONY exam, assessment and plan. Pt was seen from cardiology office for elevated blood pressure 250/140. Received Labetalol and clonidine in the ER. Pt denies any symptoms. Will start on metoprolol 50mg and amlodipine. Case discussed with cardiology. Will monitor closely in tele. Will get an echo. MD Sera.
[2019-02-12] MEDS ORDERED: POLYETHYLENE (MIRALAX) 17 GM PACK PO PRN (16:26)
[2019-02-12] MEDS ORDERED: ACETAMINOPHEN 325 MG TAB PO PRN (16:26)
[2019-02-12] MEDS ORDERED: ONDANSETRON INJ 2 MG/ML 2 ML VIAL IV PRN (16:26)
--- NOTE | 2019-02-12 16:49 | Cardiology Consultation ---
Date of Consultation February 12, 2019 Assessment & Plan (1) Hypertensive urgency: I agree with the current treatment of the patient's hypertension. I do not believe that long-term labetalol and methyldopa for the best drugs for this young female. I agree with starting metoprolol and amlodipine. We will have to see how her blood pressure response to these medications. In the past she has had a workup for secondary causes however it has been several years and I think it is worth doing a renal ultrasound and remeasuring catecholamines along with aldosterone and renin levels. She should have a urine analysis for protein. Also she should have a urine tox screen performed. Due to her abnormal EKG and echocardiogram will also be obtained. Further evaluation and treatment following the above. (2) Acute kidney injury: (3) Cardiac disease: History of Present Illness Attending Physician: Katie Zamora MD History of Present Illness This is a 38-year-old female who has had difficult to control hypertension since age 20. She had some difficulties during and was placed on labetalol and methyldopa. She has been on these medications for several years. Recently she ran out of her methyldopa and has not taken this medication for 2 weeks. She was seen in the clinic today by Joan Haile and she was markedly hypertensive and referred to the hospital for hypertensive emergency. Patient states that she has a slight headache but no chest pain or shortness of breath. She did have EKG changes in the clinic suggesting LVH with strain. The patient has had in the past a workup for secondary causes but it has been several years. Allergies Allergy/AdvReac Type Severity Reaction Status Date / Time No Known Allergies Allergy Unverified 02/12/19 10:21 Home Medications Home Medications Medication Instructions Recorded Confirmed Type labetalol 200 mg PO BID 02/12/19 02/12/19 History sertraline [Zoloft] 50 mg PO DAILY 02/12/19 02/12/19 History Patient History Medical History Depression (Chronic) HTN (hypertension) (Chronic) Ovarian torsion (Resolved) Surgical History S/P removal of right ovary (Resolved) 2/2 ovarian torsion in 2017 Family History Father Crohn's disease Lung cancer Mother Breast cancer Hypertension Social History Preferred Language: [place] Communication Ability: Effective Rn Liaison Required: No Beliefs That Will Affect Care: None Current Living Situation: Spouse and Family Other Information That Helps Us Care for You: No Feels Safe at Home: Yes Safety Concerns: Feels Safe At This Time Smoking Status: Former smoker Hx Alcohol Use: Yes Hx Substance Use: No Review of Systems Review of Systems: See HPI for pertinent positives. All other 10 point review of systems are negative. Physical Exam Vital Signs (Past 24 Hours): Last Vital Signs Temp 36.6 C 02/12/19 09:53 Pulse 96 H 02/12/19 15:31 Resp 18 02/12/19 15:31 BP 200/129 H 02/12/19 15:30 Pulse Ox 97 02/12/19 15:31 Physical Exam: General: no acute distress and stated age Head: normocephalic, no masses, lesions, tenderness or abnormalities Eyes: conjunctiva are pink and non-injected, sclera clear Neck: supple, no adenopathy, no bruits, normal jugular venous pulse, no hepatojugular reflux Chest: normal shape and normal respiratory effort Lungs: clear to auscultation and percussion Cardiac Exam: - regular rate & rhythm, no murmurs gallops or rubs - normal S1, normal S2 Pulses: 2(+) throughout Abdomen: abdomen soft, non-tender, no abnormal masses and no hepatosplenomegaly Musculoskeletal: no gait disturbance, no joint inflammation, no deforming arthritis Extremities: no edema and no cyanosis Neuro: grossly normal exam Results & Data Laboratory Results Laboratory Results - last 24 hr 02/12/19 02/12/19 02/12/19 10:35 10:35 10:43 WBC 7.07 RBC 4.38 Hgb 14.9 Hct 42.3 MCV 96.6 MCH 34.0 MCHC 35.2 RDW Std Deviation 46.6 H RDW Coeff of Ana María 13.3 Plt Count 198 MPV 11.1 H Immature Gran % (Auto) 0.1 Neut % (Auto) 67.9 Lymph % (Auto) 21.1 [place] % (Auto) 8.5 Eos % (Auto) 1.7 Baso % (Auto) 0.7 Immature Gran # (Auto) 0.01 Neut # (Auto) 4.80 Lymph # (Auto) 1.49 [place] # (Auto) 0.60 H Eos # (Auto) 0.12 Baso # (Auto) 0.05 Sodium 137 Potassium 3.4 L Chloride 103 Carbon Dioxide 28 Anion Gap 7.0 BUN 14 Creatinine 1.27 H Est Cr Clr Drug Dosing 60.0 Est GFR ( Amer) 62.0 Est GFR (Non-Af Amer) 53.5 BUN/Creatinine Ratio 11.2 Glucose 86 Calcium 9.5 Total Bilirubin 0.9 AST 31 ALT 41 Alkaline Phosphatase 114 POC Troponin I < 0.03 Total Protein 8.0 Albumin 4.1 Globulin 3.9 Albumin/Globulin Ratio 1.1 Lipase 85 POC Ur Test 02/12/19 10:45 WBC RBC Hgb Hct MCV MCH MCHC RDW Std Deviation RDW Coeff of Ana María Plt Count MPV Immature Gran % (Auto) Neut % (Auto) Lymph % (Auto) [place] % (Auto) Eos % (Auto) Baso % (Auto) Immature Gran # (Auto) Neut # (Auto) Lymph # (Auto) [place] # (Auto) Eos # (Auto) Baso # (Auto) Sodium Potassium Chloride Carbon Dioxide Anion Gap BUN Creatinine Est Cr Clr Drug Dosing Est GFR ( Amer) Est GFR (Non-Af Amer) BUN/Creatinine Ratio Glucose Calcium Total Bilirubin AST ALT Alkaline Phosphatase POC Troponin I Total Protein Albumin Globulin Albumin/Globulin Ratio Lipase POC Ur Test NEG Medications Administered Current Inpatient Medications Acetaminophen (Tylenol) 650 mg PO Q4H PRN PRN Reason: Pain or Fever Stop: 03/14/19 16:25 Amlodipine Besylate (Norvasc) 5 mg PO QAM [facility] Stop: 03/14/19 16:25 Clonidine HCl (Catapres) 0.1 mg PO Q6H PRN PRN Reason: SBP >170 Stop: 03/14/19 16:25 Metoprolol Tartrate (Lopressor) 50 mg PO BID [facility] Stop: 03/14/19 20:59 Ondansetron HCl (Zofran) 4 mg IV Q6H PRN PRN Reason: Nausea Stop: 03/14/19 16:25 Polyethylene Glycol (Miralax Powder Packet) 17 gm PO DAILY PRN PRN Reason: Constipation Stop: 03/14/19 16:25 Sertraline HCl (Zoloft) 50 mg PO DAILY [facility] Stop: 03/15/19 20:59
--- NOTE | 2019-02-12 17:02 | Emergency Department Note ---
Entered by Mich Andres acting as a scribe for Will Gardner MD History of Present Illness General Chief complaint: Hypertension Stated complaint: HIGH BLOOD PRESSURE Time Seen by Provider: 02/12/19 10:13 Source: patient Mode of arrival: ambulatory History of Present Illness Provider complaint: Hypertension Onset (ago): day(s) 1 Location: chest Pain Consistency: + constant Quality: + other (Hypertension) Associated symptoms: no chest pain, no headaches and no shortness of breath Patient is a 38 year old female who presents herself to the ER with complains of hypertension beginning yesterday. Her blood pressure upon arrival in the ER is 249/ 152. Patient states she has has constant hypertension history for last decade of her life. She takes medications methyldopa once a day and labetalol to manage her symptoms. Patient states methyldopa has been the only medication which has been able to control her problems. Patient states the medication is on backorder till August. She went to her PCP regarding obtaining the medication and was recommended to see a wooden furniture polisher from her PCPs office. Once at cardiology, patient was not able to receive the methyldopa medication and was referred to the ER. She states she has not had the methyldopa medication for 3 weeks. She also reports taking labetalol medication as well which she has been taking consistently. She denies headaches, shortness of breath and chest pain. Home Medications Home Medications Medication Instructions Recorded Confirmed Type labetalol 200 mg PO BID 02/12/19 02/12/19 History sertraline [Zoloft] 50 mg PO DAILY 02/12/19 02/12/19 History Allergies Allergy/AdvReac Type Severity Reaction Status Date / Time No Known Allergies Allergy Unverified 02/12/19 10:21 Past Med/Surg History Medical History Depression (Chronic) HTN (hypertension) (Chronic) Ovarian torsion (Resolved) Surgical History S/P removal of right ovary (Resolved) 2/2 ovarian torsion in 2017 Family History Father Crohn's disease Lung cancer Mother Breast cancer Hypertension Social History Preferred Language: Persian Communication Ability: Effective Travel Med Surg Rn Required: No Beliefs That Will Affect Care: None Current Living Situation: Spouse and Family Other Information That Helps Us Care for You: No Feels Safe at Home: Yes Safety Concerns: Feels Safe At This Time Smoking Status: Former smoker Hx Alcohol Use: Yes Hx Substance Use: No Review of Systems See HPI for pertinent positives & negatives. and A total of 10 systems reviewed and were otherwise negative Physical Exam Vital Signs Vital Signs - 24 hr 02/12/19 09:53 02/12/19 10:49 02/12/19 10:52 Temperature 36.6 C Temperature Source Oral Sepsis Recent Fever Within 48 Hours No Sepsis Action Taken by Nursing No Action Required Pulse Rate 105 H 84 Pulse Rate [Apical] 83 Pulse Rate [Left Finger] Pulse Rate from SpO2 Sensor Pulse Rhythm Regular Pulse Strength Normal Respiratory Rate 20 18 16 Respiratory Effort / Characteristics Non-Labored Spontaneous Respiratory Depth Normal Respiratory Pattern Regular Blood Pressure 249/152 H 235/149 H Blood Pressure [Left Arm] Blood Pressure [Right Arm] 235/149 H Blood Pressure Mean 184 177 Blood Pressure Mean [Left Arm] Blood Pressure Mean [Right Arm] 177 Blood Pressure Position Sitting Pulse Oximetry 99 Oxygen Delivery Method Room Air 02/12/19 11:21 02/12/19 11:30 02/12/19 11:33 Temperature Temperature Source Sepsis Recent Fever Within 48 Hours Sepsis Action Taken by Nursing Pulse Rate 78 91 H 94 H Pulse Rate [Apical] Pulse Rate [Left Finger] Pulse Rate from SpO2 Sensor Pulse Rhythm Pulse Strength Respiratory Rate 14 16 16 Respiratory Effort / Characteristics Respiratory Depth Respiratory Pattern Blood Pressure 231/134 H Blood Pressure [Left Arm] Blood Pressure [Right Arm] Blood Pressure Mean 166 Blood Pressure Mean [Left Arm] Blood Pressure Mean [Right Arm] Blood Pressure Position Pulse Oximetry Oxygen Delivery Method 02/12/19 11:40 02/12/19 11:50 02/12/19 12:00 Temperature Temperature Source Sepsis Recent Fever Within 48 Hours Sepsis Action Taken by Nursing Pulse Rate 86 86 89 Pulse Rate [Apical] 92 H Pulse Rate [Left Finger] Pulse Rate from SpO2 Sensor Pulse Rhythm Pulse Strength Respiratory Rate 21 11 L 16 Respiratory Effort / Characteristics Respiratory Depth Respiratory Pattern Blood Pressure 222/150 H Blood Pressure [Left Arm] Blood Pressure [Right Arm] 231/134 H Blood Pressure Mean 174 Blood Pressure Mean [Left Arm] Blood Pressure Mean [Right Arm] 166 Blood Pressure Position Pulse Oximetry Oxygen Delivery Method 02/12/19 12:01 02/12/19 12:10 02/12/19 12:20 Temperature Temperature Source Sepsis Recent Fever Within 48 Hours Sepsis Action Taken by Nursing Pulse Rate 87 86 82 Pulse Rate [Apical] Pulse Rate [Left Finger] Pulse Rate from SpO2 Sensor Pulse Rhythm Pulse Strength Respiratory Rate 13 18 10 L Respiratory Effort / Characteristics Respiratory Depth Respiratory Pattern Blood Pressure Blood Pressure [Left Arm] Blood Pressure [Right Arm] Blood Pressure Mean Blood Pressure Mean [Left Arm] Blood Pressure Mean [Right Arm] Blood Pressure Position Pulse Oximetry Oxygen Delivery Method 02/12/19 12:30 02/12/19 12:31 02/12/19 12:32 Temperature Temperature Source Sepsis Recent Fever Within 48 Hours Sepsis Action Taken by Nursing Pulse Rate 97 H 91 H Pulse Rate [Apical] 85 Pulse Rate [Left Finger] Pulse Rate from SpO2 Sensor Pulse Rhythm Pulse Strength Respiratory Rate 16 17 18 Respiratory Effort / Characteristics Respiratory Depth Normal Respiratory Pattern Blood Pressure 245/153 H Blood Pressure [Left Arm] Blood Pressure [Right Arm] 222/139 H Blood Pressure Mean 183 Blood Pressure Mean [Left Arm] Blood Pressure Mean [Right Arm] 166 Blood Pressure Position Pulse Oximetry 98 Oxygen Delivery Method Room Air 02/12/19 12:33 02/12/19 12:34 02/12/19 12:40 Temperature Temperature Source Sepsis Recent Fever Within 48 Hours Sepsis Action Taken by Nursing Pulse Rate 80 76 79 Pulse Rate [Apical] Pulse Rate [Left Finger] Pulse Rate from SpO2 Sensor 82 77 80 Pulse Rhythm Pulse Strength Respiratory Rate 14 14 16 Respiratory Effort / Characteristics Respiratory Depth Respiratory Pattern Blood Pressure 222/139 H 223/134 H Blood Pressure [Left Arm] Blood Pressure [Right Arm] Blood Pressure Mean 166 163 Blood Pressure Mean [Left Arm] Blood Pressure Mean [Right Arm] Blood Pressure Position Pulse Oximetry 97 98 97 Oxygen Delivery Method 02/12/19 12:45 02/12/19 12:50 02/12/19 13:00 Temperature Temperature Source Sepsis Recent Fever Within 48 Hours Sepsis Action Taken by Nursing Pulse Rate 86 82 85 Pulse Rate [Apical] Pulse Rate [Left Finger] Pulse Rate from SpO2 Sensor 86 83 86 Pulse Rhythm Pulse Strength Respiratory Rate 12 14 14 Respiratory Effort / Characteristics Respiratory Depth Respiratory Pattern Blood Pressure 227/143 H 187/112 H Blood Pressure [Left Arm] Blood Pressure [Right Arm] Blood Pressure Mean 171 137 Blood Pressure Mean [Left Arm] Blood Pressure Mean [Right Arm] Blood Pressure Position Pulse Oximetry 98 97 99 Oxygen Delivery Method 02/12/19 13:01 02/12/19 13:10 02/12/19 13:15 Temperature Temperature Source Sepsis Recent Fever Within 48 Hours Sepsis Action Taken by Nursing Pulse Rate 82 83 86 Pulse Rate [Apical] Pulse Rate [Left Finger] Pulse Rate from SpO2 Sensor 83 83 87 Pulse Rhythm Pulse Strength Respiratory Rate 17 15 19 Respiratory Effort / Characteristics Respiratory Depth Respiratory Pattern Blood Pressure 196/122 H Blood Pressure [Left Arm] Blood Pressure [Right Arm] Blood Pressure Mean 146 Blood Pressure Mean [Left Arm] Blood Pressure Mean [Right Arm] Blood Pressure Position Pulse Oximetry 98 98 98 Oxygen Delivery Method 02/12/19 13:20 02/12/19 13:21 02/12/19 13:25 Temperature Temperature Source Sepsis Recent Fever Within 48 Hours Sepsis Action Taken by Nursing Pulse Rate 83 83 Pulse Rate [Apical] 87 Pulse Rate [Left Finger] Pulse Rate from SpO2 Sensor 83 82 Pulse Rhythm Pulse Strength Respiratory Rate 15 20 16 Respiratory Effort / Characteristics Respiratory Depth Respiratory Pattern Blood Pressure 196/122 H Blood Pressure [Left Arm] Blood Pressure [Right Arm] 196/122 H Blood Pressure Mean 146 Blood Pressure Mean [Left Arm] Blood Pressure Mean [Right Arm] 146 Blood Pressure Position Pulse Oximetry 98 98 97 Oxygen Delivery Method 02/12/19 13:30 02/12/19 13:40 02/12/19 13:45 Temperature Temperature Source Sepsis Recent Fever Within 48 Hours Sepsis Action Taken by Nursing Pulse Rate 86 82 85 Pulse Rate [Apical] Pulse Rate [Left Finger] Pulse Rate from SpO2 Sensor 85 82 89 Pulse Rhythm Pulse Strength Respiratory Rate 20 21 21 Respiratory Effort / Characteristics Respiratory Depth Respiratory Pattern Blood Pressure 202/122 H Blood Pressure [Left Arm] Blood Pressure [Right Arm] Blood Pressure Mean 148 Blood Pressure Mean [Left Arm] Blood Pressure Mean [Right Arm] Blood Pressure Position Pulse Oximetry 98 97 96 Oxygen Delivery Method 02/12/19 13:50 02/12/19 14:00 02/12/19 14:01 Temperature Temperature Source Sepsis Recent Fever Within 48 Hours Sepsis Action Taken by Nursing Pulse Rate 79 85 84 Pulse Rate [Apical] Pulse Rate [Left Finger] Pulse Rate from SpO2 Sensor 79 88 84 Pulse Rhythm Pulse Strength Respiratory Rate 21 12 10 L Respiratory Effort / Characteristics Respiratory Depth Respiratory Pattern Blood Pressure 186/115 H Blood Pressure [Left Arm] Blood Pressure [Right Arm] Blood Pressure Mean 138 Blood Pressure Mean [Left Arm] Blood Pressure Mean [Right Arm] Blood Pressure Position Pulse Oximetry 97 99 98 Oxygen Delivery Method 02/12/19 14:07 02/12/19 14:10 02/12/19 14:20 Temperature Temperature Source Sepsis Recent Fever Within 48 Hours Sepsis Action Taken by Nursing Pulse Rate 82 84 Pulse Rate [Apical] 89 Pulse Rate [Left Finger] Pulse Rate from SpO2 Sensor 82 83 Pulse Rhythm Pulse Strength Respiratory Rate 16 16 15 Respiratory Effort / Characteristics Respiratory Depth Respiratory Pattern Blood Pressure Blood Pressure [Left Arm] Blood Pressure [Right Arm] 186/115 H Blood Pressure Mean Blood Pressure Mean [Left Arm] Blood Pressure Mean [Right Arm] 138 Blood Pressure Position Pulse Oximetry 98 97 98 Oxygen Delivery Method Room Air 02/12/19 14:30 02/12/19 14:31 02/12/19 14:40 Temperature Temperature Source Sepsis Recent Fever Within 48 Hours Sepsis Action Taken by Nursing Pulse Rate 86 81 82 Pulse Rate [Apical] Pulse Rate [Left Finger] Pulse Rate from SpO2 Sensor 85 83 83 Pulse Rhythm Pulse Strength Respiratory Rate 14 20 19 Respiratory Effort / Characteristics Respiratory Depth Respiratory Pattern Blood Pressure 185/106 H Blood Pressure [Left Arm] Blood Pressure [Right Arm] Blood Pressure Mean 132 Blood Pressure Mean [Left Arm] Blood Pressure Mean [Right Arm] Blood Pressure Position Pulse Oximetry 99 97 97 Oxygen Delivery Method 02/12/19 14:50 02/12/19 14:53 02/12/19 15:00 Temperature Temperature Source Sepsis Recent Fever Within 48 Hours Sepsis Action Taken by Nursing Pulse Rate 78 77 Pulse Rate [Apical] 81 Pulse Rate [Left Finger] Pulse Rate from SpO2 Sensor 78 Pulse Rhythm Pulse Strength Respiratory Rate 21 16 12 Respiratory Effort / Characteristics Respiratory Depth Respiratory Pattern Blood Pressure 186/109 H Blood Pressure [Left Arm] Blood Pressure [Right Arm] 185/106 H Blood Pressure Mean 134 Blood Pressure Mean [Left Arm] Blood Pressure Mean [Right Arm] 132 Blood Pressure Position Pulse Oximetry 97 98 Oxygen Delivery Method Room Air 02/12/19 15:10 02/12/19 15:15 02/12/19 15:20 Temperature Temperature Source Sepsis Recent Fever Within 48 Hours Sepsis Action Taken by Nursing Pulse Rate 80 81 87 Pulse Rate [Apical] Pulse Rate [Left Finger] Pulse Rate from SpO2 Sensor 80 82 Pulse Rhythm Pulse Strength Respiratory Rate 18 23 16 Respiratory Effort / Characteristics Respiratory Depth Respiratory Pattern Blood Pressure 194/121 H Blood Pressure [Left Arm] Blood Pressure [Right Arm] Blood Pressure Mean 145 Blood Pressure Mean [Left Arm] Blood Pressure Mean [Right Arm] Blood Pressure Position Pulse Oximetry 97 98 Oxygen Delivery Method 02/12/19 15:30 02/12/19 15:31 02/12/19 15:38 Temperature Temperature Source Sepsis Recent Fever Within 48 Hours Sepsis Action Taken by Nursing Pulse Rate 81 96 H Pulse Rate [Apical] Pulse Rate [Left Finger] Pulse Rate from SpO2 Sensor 83 93 H Pulse Rhythm Pulse Strength Respiratory Rate 19 18 Respiratory Effort / Characteristics Respiratory Depth Respiratory Pattern Blood Pressure 200/129 H Blood Pressure [Left Arm] Blood Pressure [Right Arm] Blood Pressure Mean 152 Blood Pressure Mean [Left Arm] Blood Pressure Mean [Right Arm] Blood Pressure Position Pulse Oximetry 97 97 Oxygen Delivery Method Room Air 02/12/19 16:26 Temperature 37 C Temperature Source Oral Sepsis Recent Fever Within 48 Hours Sepsis Action Taken by Nursing Pulse Rate Pulse Rate [Apical] Pulse Rate [Left Finger] 87 Pulse Rate from SpO2 Sensor Pulse Rhythm Pulse Strength Respiratory Rate 16 Respiratory Effort / Characteristics Non-Labored Spontaneous Respiratory Depth Normal Respiratory Pattern Regular Blood Pressure Blood Pressure [Left Arm] 203/141 H Blood Pressure [Right Arm] Blood Pressure Mean Blood Pressure Mean [Left Arm] 161 Blood Pressure Mean [Right Arm] Blood Pressure Position Pulse Oximetry 98 Oxygen Delivery Method Room Air General: Non-ill appearing 38year old female, in no acute distress. HEENT: Normal cephalic atraumatic. Pupils are equal round and reactive to light. Extraocular movements are intact. Oropharynx is pink with moist mucous membranes. No swelling of the mouth lips or tongue. Neck: Supple with a midline trachea. No meningeal signs or stiffness, no JVD or bruits. No Stridor. Chest: Clear to auscultation bilaterally. No wheezes or rhonchi. No increased work of breathing. Heart: regular rate and rhythm. Abdomen: Soft nontender, nondistended without rebound guarding or rigidity. Extremities: No cyanosis clubbing or edema. No calf tenderness or asymmetry Spine/Back. Non tender to palpation. No CVA tenderness Skin: Good turgor without rashes. Neurologic exam: Cranial nerves two through 12 are intact. Motor and sensation are intact and symmetrical throughout. Course 1013: The patient was evaluated in room C02B, and a complete history and physical examination were performed. 1039: I spoke with Efra Dc PA-C. She will come see patient for admission. The patient has verbalized agreement to the treatment plan. 1107: I spoke with the patient, she wanted me to check on her medications. 1144: I am putting further medications to be ordered for the patient. Consultations Consultation #1: Efra Dc PA-C Time: 10:39 Administered Medications Discontinued Medications Clonidine HCl (Catapres) 0.1 mg PO NOW ONE Stop: 02/12/19 11:45 Last Admin: 02/12/19 12:01 Dose: 0.1 mg Documented by: [id number] Labetalol HCl (Normodyne) 10 mg IV NOW STA Stop: 02/12/19 12:24 Last Admin: 02/12/19 12:31 Dose: 10 mg Documented by: [id number] Cosigned by: [id number] Medical Decision Making Differential Diagnosis Etiologies such as benign hypertension, hypertensive emergency, cardiovascular pathology, intracranial process, toxic ingestion, withdrawal syndrome, electrolyte abnormality, renal disease, end organ damage, as well as others were entertained. Medical Records Attestation: I reviewed the patient's medical records. Home Medications Current Medication List: was personally reviewed by me Laboratory Data Attestation: I reviewed the patient's lab results. Result diagrams: 02/12/19 10:35 02/12/19 10:35 Lab Results 02/12/19 02/12/19 02/12/19 Range/Units 10:35 10:35 10:43 WBC 7.07 (4.8-10.8) K/uL RBC 4.38 (4.2-5.4) M/uL Hgb 14.9 (12.0-16.0) g/dL Hct 42.3 (37-47) % MCV 96.6 (80-100) fL MCH 34.0 (25-34) pg MCHC 35.2 (32-36) g/dL RDW Std Deviation 46.6 H (36.4-46.3) fL RDW Coeff of Ana María 13.3 (11.5-14.5) % Plt Count 198 (130-400) K/uL MPV 11.1 H (7.4-10.4) fL Immature Gran % (Auto) 0.1 % Neut % (Auto) 67.9 % Lymph % (Auto) 21.1 % Hettinger % (Auto) 8.5 % Eos % (Auto) 1.7 % Baso % (Auto) 0.7 % Immature Gran # (Auto) 0.01 (0.00-0.02) K/uL Neut # (Auto) 4.80 (1.4-6.5) K/uL Lymph # (Auto) 1.49 (1.2-3.4) K/uL Hettinger # (Auto) 0.60 H (0.11-0.59) K/uL Eos # (Auto) 0.12 (0-0.5) K/uL Baso # (Auto) 0.05 (0-0.2) K/uL Sodium 137 (136-145) mmol/L Potassium 3.4 L (3.5-5.1) mmol/L Chloride 103 (98-107) mmol/L Carbon Dioxide 28 (21-32) mmol/L Anion Gap 7.0 (3-11) BUN 14 (7-18) mg/dl Creatinine 1.27 H (0.6-1.2) mg/dl Est Cr Clr Drug Dosing 60.0 ml/min Est GFR ( Amer) 62.0 Est GFR (Non-Af Amer) 53.5 BUN/Creatinine Ratio 11.2 (10-20) Glucose 86 (70-99) mg/dl Calcium 9.5 (8.5-10.1) mg/dl Total Bilirubin 0.9 (0.2-1) mg/dl AST 31 (15-37) U/L ALT 41 (12-78) U/L Alkaline Phosphatase 114 (45-117) U/L POC Troponin I < 0.03 (0-0.045) ng/ml Total Protein 8.0 (6.4-8.2) gm/dl Albumin 4.1 (3.4-5.0) gm/dl Globulin 3.9 (2.5-4.0) gm/dl Albumin/Globulin Ratio 1.1 (0.9-2) Lipase 85 (73-393) U/L POC Ur Test (NEG) 02/12/19 Range/Units 10:45 WBC (4.8-10.8) K/uL RBC (4.2-5.4) M/uL Hgb (12.0-16.0) g/dL Hct (37-47) % MCV (80-100) fL MCH (25-34) pg MCHC (32-36) g/dL RDW Std Deviation (36.4-46.3) fL RDW Coeff of Ana María (11.5-14.5) % Plt Count (130-400) K/uL MPV (7.4-10.4) fL Immature Gran % (Auto) % Neut % (Auto) % Lymph % (Auto) % Hettinger % (Auto) % Eos % (Auto) % Baso % (Auto) % Immature Gran # (Auto) (0.00-0.02) K/uL Neut # (Auto) (1.4-6.5) K/uL Lymph # (Auto) (1.2-3.4) K/uL Hettinger # (Auto) (0.11-0.59) K/uL Eos # (Auto) (0-0.5) K/uL Baso # (Auto) (0-0.2) K/uL Sodium (136-145) mmol/L Potassium (3.5-5.1) mmol/L Chloride (98-107) mmol/L Carbon Dioxide (21-32) mmol/L Anion Gap (3-11) BUN (7-18) mg/dl Creatinine (0.6-1.2) mg/dl Est Cr Clr Drug Dosing ml/min Est GFR ( Amer) Est GFR (Non-Af Amer) BUN/Creatinine Ratio (10-20) Glucose (70-99) mg/dl Calcium (8.5-10.1) mg/dl Total Bilirubin (0.2-1) mg/dl AST (15-37) U/L ALT (12-78) U/L Alkaline Phosphatase (45-117) U/L POC Troponin I (0-0.045) ng/ml Total Protein (6.4-8.2) gm/dl Albumin (3.4-5.0) gm/dl Globulin (2.5-4.0) gm/dl Albumin/Globulin Ratio (0.9-2) Lipase (73-393) U/L POC Ur Test NEG (NEG) Imaging Data Attestation: I personally reviewed and interpreted this imaging study as follows: Radiologist's Impression: Radiology results as stated below per my review and the radiologist's interpretation: XR chest 1V portable CLINICAL HISTORY: Chest Pain dyspnea COMPARISON STUDY: No previous studies for comparison. FINDINGS: The bones soft tissues and hemidiaphragms are normal. The cardiomediastinal silhouette is normal. The lungs are clear. The pulmonary vasculature is normal. IMPRESSION: Negative chest. The above report was generated using voice recognition software. It may contain grammatical, syntax or spelling errors. Electronically signed by: Diego Ramey M.D. 02/12/2019 10:58 AM Dictated: 02/12/19 1058 Transcribed: 02/12/19 105 ECG Data Attestation: I personally reviewed and interpreted this ECG as follows: Indication: other (Hypertension) Rate (beats per minute): 83 Rhythm: normal sinus Findings: + other (LVH, ST Inferior, T wave abnormalities ) Comparison ECG Date: no prior available Blood Pressure Blood Pressure Findings: Elevated blood pressure Blood Pressure Disposition: further management by hospitalist MDM Narrative This patient was sent over from her wooden furniture polisher office after having persistent elevated blood pressure. She has been in 240s over 140. She is asymptomatic however she has no chest pain or shortness of breath or any evidence to suggest acute end organ damage. They actually tried to make her a direct admit but there was recommended she come to the ER. On her EKG, she does some T wave inversion, this may be from repolarization changes from LVH. Her troponin is negative. She has no significant electrolyte or metabolic abnormality her kidney function is mildly elevated. I do think she needs to be admitted/observe. I did discuss this with our ED pharmacist and we will start with clonidine containing 0.1 mg the patient was given this and the medical team saw her they are going to admit her for further blood pressure management and treatment. Impression & Plan Hypertensive urgency Discharge Plan Visit Data *Final* Discharge Date/Time: 02/12/19 15:38 Chief Complaint: Hypertension Stated Complaint: HIGH BLOOD PRESSURE ED Provider: Will Gardner Discharge Problem: Hypertensive urgency Patient Disposition: Admitted As Inpatient Discharge Instructions Interventions: ED Discharge Assessment Last Done: 02/12/19 15:38 The scribe's documentation has been prepared under my direction and personally reviewed by me in its entirety. I confirm that the note above accurately reflects all work, treatment, procedures, and medical decision making performed by me.
[2019-02-12] MEDS: AMLODIPINE BESYLATE 5 MG TAB PO SCH (18:02)
[2019-02-12 19:18] LABS: Appearance Urine Clear (Clear); Bacteria Urine Automated 2+ (Negative); Bilirubin Urine Negative (Negative); Blood Urine Trace (Negative); Color Urine Yellow; Epithelial Cell Urine Auto >30 /lpf (0-5); Glucose Urine UA Negative (Negative); Ketones Urine 1+ (Negative); Leukocyte Esterase Urine Negative (Negative); Nitrite Urine Negative (Negative); Protein Urine 1+ (Negative); Specific Gravity Urine 1.015 (1.000-1.030); Urobilinogen Urine Negative (Negative); pH Urine 6.5 (4.5-7.5)
[2019-02-12] MEDS: cloNIDine HCl 0.1 MG TAB PO PRN (19:24)
[2019-02-12] MEDS: METOPROLOL TARTRATE 50 MG TAB PO SCH (20:23)
[2019-02-13] MEDS: cloNIDine HCl 0.1 MG TAB PO PRN ×2 (01:24→22:46)
[2019-02-13 05:35] LABS: Mean Corpuscular Hgb Conc 35.1 g/dL (32-36); Mean Corpuscular Volume 95.9 fL (80-100); Mean Platelet Volume 10.8 fL (7.4-10.4); Platelet Count 158 K/uL (130-400); RDW Coefficient of Variation 13.4 % (11.5-14.5); RDW Standard Deviation 46.3 fL (36.4-46.3); Red Blood Count 3.86 M/uL (4.2-5.4); White Blood Count 6.89 K/uL (4.8-10.8)
[2019-02-13 06:15] LABS: BUN Creatinine Ratio 14.6 (10-20); Calcium 8.3 mg/dl (8.5-10.1); Creatinine Clr Calc Pharmacy 53.9 ml/min; Est GFR (African American) 55.1; Est GFR (Non-African American) 47.5; Potassium 2.7 mmol/L (3.5-5.1)
[2019-02-13] MEDS: METOPROLOL TARTRATE 50 MG TAB PO SCH ×2 (07:23→20:02)
[2019-02-13] MEDS: AMLODIPINE BESYLATE 5 MG TAB PO SCH (07:23)
--- NOTE | 2019-02-13 07:31 | Ultrasound Report ---
US duplex renal artery CLINICAL HISTORY: hypertension COMPARISON STUDY: Abdomen and pelvis CT 10/05/2017. FINDINGS: The right kidney measures 9.9 cm in the left kidney measures 10.8 cm. No hydronephrosis. Th e resistive indices within the bilateral renal arcuate arteries are within normal limits. The bilater al renal veins are patent. The peak systolic velocity within the right renal artery was 159 cm/s and the left renal artery was 137 cm/s. A 4.5 cm subtle hypoechoic region within the right hepatic lobe. This favors focal fatty sparing. No definite hepatic mass identified. The hepatic vessels appear to t raverse through this hypoechoic area. IMPRESSION: No evidence for renal artery stenosis. Electronically signed by: Herbie Strange M.D. 02/13/2019 7:30 AM
[2019-02-13] MEDS ORDERED: POTASSIUM CHLORIDE 20 MEQ TABCR PO ONE (08:15)
--- NOTE | 2019-02-13 10:07 | Hospitalist Progress Note ---
Date of Service February 13, 2019 Physical Exam Vital Signs (Past 24 Hours): Last Vital Signs Temp 36.7 C 02/13/19 07:35 Pulse 62 02/13/19 07:35 Resp 18 02/13/19 07:35 BP 177/112 H 02/13/19 07:35 Pulse Ox 98 02/13/19 07:35
[2019-02-13] MEDS: POTASSIUM CHLORIDE / WTR 10 MEQ/100 ML PLCT IV SCH ×2 (11:17→11:18)
--- NOTE | 2019-02-13 16:25 | Cardiology Progress Note ---
Date of Service February 13, 2019 Assessment & Plan (1) Hypertensive urgency: The patient blood pressure has improved. Labs are still pending and will probably not be back for several more days. The ultrasound of the kidney would not indicate renal artery stenosis. Echocardiogram was completed and I will review this study. From cardiology standpoint I believe the patient could be discharged with further management as an outpatient. (2) Acute kidney injury: (3) Cardiac disease: Subjective No complaints. The patient's blood pressure is markedly improved since admission. Physical Exam 2 Vital Signs (Past 24 Hours): Last Vital Signs Temp 36.9 C 02/13/19 15:26 Pulse 70 02/13/19 15:27 Resp 22 02/13/19 15:26 BP 155/99 H 02/13/19 15: Pulse Ox 96 02/13/19 15:26 Physical Exam: General: no acute distress and stated age Head: normocephalic, no masses, lesions, tenderness or abnormalities Eyes: conjunctiva are pink and non-injected, sclera clear Neck: supple, no adenopathy, no bruits, normal jugular venous pulse, no hepatojugular reflux Chest: normal shape and normal respiratory effort Lungs: clear to auscultation and percussion Cardiac Exam: - regular rate & rhythm, no murmurs gallops or rubs - normal S1, normal S2 Pulses: 2(+) throughout Abdomen: abdomen soft, non-tender, no abnormal masses and no hepatosplenomegaly Musculoskeletal: no gait disturbance, no joint inflammation, no deforming arthritis Extremities: no edema and no cyanosis Neuro: grossly normal exam Results & Data Laboratory Results Laboratory Results - last 24 hr 02/12/19 02/12/19 02/12/19 17:06 17:06 17:45 WBC RBC Hgb Hct MCV MCH MCHC RDW Std Deviation RDW Coeff of Ana María Plt Count MPV Sodium Potassium Chloride Carbon Dioxide Anion Gap BUN Creatinine Est Cr Clr Drug Dosing Est GFR ( Amer) Est GFR (Non-Af Amer) BUN/Creatinine Ratio Glucose Calcium Magnesium Random Cortisol 6.78 Plasma Metanephrine Cancelled Plasma Normetanephrine Cancelled Plas Total Metaneph Cancelled Urine Color Yellow Urine Appearance Clear Urine pH 6.5 Ur Specific [place] 1.015 Urine Protein 1+ H Urine Glucose (UA) Negative Urine Ketones 1+ H Urine Blood Trace H Urine Nitrite Negative Urine Bilirubin Negative Urine Urobilinogen Negative Ur Leukocyte Esterase Negative Urine WBC (Auto) 1-5 Urine RBC (Auto) 5-10 H U Hyaline Cast (Auto) 1-5 U Epithel Cells (Auto) >30 H Urine Bacteria (Auto) 2+ H 02/13/19 02/13/19 02/13/19 05:25 05:25 05:25 WBC 6.89 RBC 3.86 L Hgb 13.0 Hct 37.0 MCV 95.9 MCH 33.7 MCHC 35.1 RDW Std Deviation 46.3 RDW Coeff of Ana María 13.4 Plt Count 158 MPV 10.8 H Sodium 136 Potassium 2.7 L D Chloride 103 Carbon Dioxide 29 Anion Gap 4.0 BUN 20 H Creatinine 1.40 H Est Cr Clr Drug Dosing 53.9 Est GFR ( Amer) 55.1 Est GFR (Non-Af Amer) 47.5 BUN/Creatinine Ratio 14.6 Glucose 83 Calcium 8.3 L Magnesium 2.2 Random Cortisol Plasma Metanephrine Plasma Normetanephrine Plas Total Metaneph Urine Color Urine Appearance Urine pH Ur Specific [place] Urine Protein Urine Glucose (UA) Urine Ketones Urine Blood Urine Nitrite Urine Bilirubin Urine Urobilinogen Ur Leukocyte Esterase Urine WBC (Auto) Urine RBC (Auto) U Hyaline Cast (Auto) U Epithel Cells (Auto) Urine Bacteria (Auto) Medications Administered Current Inpatient Medications Acetaminophen (Tylenol) 650 mg PO Q4H PRN PRN Reason: Pain or Fever Stop: 03/14/19 16:25 Last Admin: 02/13/19 07:22 Dose: 650 mg Documented by: Amlodipine Besylate (Norvasc) 5 mg PO QAM [facility] Stop: 03/14/19 16:25 Last Admin: 02/13/19 07:23 Dose: 5 mg Documented by: Clonidine HCl (Catapres) 0.1 mg PO Q6H PRN PRN Reason: SBP >170 Stop: 03/14/19 16:25 Last Admin: 02/13/19 01:24 Dose: 0.1 mg Documented by: Metoprolol Tartrate (Lopressor) 50 mg PO BID [facility] Stop: 03/14/19 20:59 Last Admin: 02/13/19 07:23 Dose: 50 mg Documented by: Ondansetron HCl (Zofran) 4 mg IV Q6H PRN PRN Reason: Nausea Stop: 03/14/19 16:25 Polyethylene Glycol (Miralax Powder Packet) 17 gm PO DAILY PRN PRN Reason: Constipation Stop: 03/14/19 16:25 Potassium Chloride (Klor-Con M20) 40 meq PO 1700 [facility] Stop: 02/13/19 17:01 Sertraline HCl (Zoloft) 50 mg PO DAILY [facility] Stop: 03/15/19 20:59
[2019-02-13] MEDS ORDERED: POTASSIUM CHLORIDE 20 MEQ TABCR PO SCH (17:00)
--- NOTE | 2019-02-13 19:20 | Hospitalist Progress Note ---
Date of Service February 13, 2019 Assessment & Plan (1) Hypertensive urgency: Presents from cardiology clinic with hypertensive urgency with BP of 250/140 on admission Renal arterial duplex showed no stenosis Starting on Norvasc 5mg daily and Metoprolol 50mg BID Cardiology on board Ok from cardiology standpoint to discharge home BP improves (2) Acute kidney injury: Mostly due to BP Creatinine increased to 1.4 today Avoid nephrotoxic agents Check BMP in 1 week Elevated troponin Iniatial troponin normal Trop mildly increased to 0.07 Mostly related to HTN urgency and ALISHA Asymptomatic Will trend troponin ECHO showed no wall motion abnormality with EF 55-60% Severe concentric LVH Hypokalemia K replaced Repeat K 3.8 Monitor BMP (3) Depression: Stable. Continue Zoloft DVT Ppx: SCDs Code status: FULL PCP: Jaelyn Dispo: Possible discharge home today if trepeat troponin trending down Subjective Pt was seen and examined Lying in bed with no distress Pt is very anxious to go home tonight She said that she feels fine Blood pressure improves Denies any chest pain, palpitation, dizziness and SOB Physical Exam Vital Signs (Past 24 Hours): Last Vital Signs Temp 36.9 C 02/13/19 15:26 Pulse 70 02/13/19 15:27 Resp 22 02/13/19 15:26 BP 155/99 H 02/13/19 15:26 Pulse Ox 96 02/13/19 15:26 Physical Exam: General- No acute distress Head- atraumatic Eyes- PERRL, EOMI, ENT- oropharynx clear Neck- supple, no JVD Lungs- clear to auscultation Heart- regular rhythm; no murmur Abdomen- normal bowel sounds, soft, nontender Extremities- no calf tenderness Neuro- alert, oriented x 3; PERRL, EOMI; no facial palsy; no dysarthria Skin- warm & dry
[2019-02-13] MEDS: SERTRALINE HCL 50 MG TABLET PO SCH (20:02)
[2019-02-13] MEDS ORDERED: HydrALAZINE HCL 20 MG/ML VIAL IV ONE (21:50)
[2019-02-13 22:22] LABS: Creatinine Clr Calc Pharmacy 47.3 ml/min; Est GFR (African American) 47.2; Est GFR (Non-African American) 40.8
[2019-02-13 22:33] LABS: Troponin I 0.071 ng/ml (0-0.045)
[2019-02-13] MEDS ORDERED: SODIUM CHLORIDE 0.9% 1000ML 1,000 ML IV SCH (22:45)
[2019-02-14] MEDS: TEMAZEPAM 15 MG CAPSULE PO PRN ×2 (00:59→21:10)
[2019-02-14 03:44] LABS: Amphetamines, Ur NEGATIVE NG/ML (CUTOFF=500); Amphetemines Ur GC/MS DNR NG/ML (CUTOFF=250); Barbiturates, Urine NEGATIVE NG/ML (CUTOFF=300); Benzodiazepines,Ur NEGATIVE NG/ML (CUTOFF=100); Cocaine, Urine NEGATIVE NG/ML (CUTOFF=150); Cocaine,Ur GC/MS DNR NG/ML (CUTOFF=100); Methadone, Ur GC/MS DNR NG/ML (CUTOFF=100); Methadone, Urine NEGATIVE NG/ML (CUTOFF=100); Opiates, Urine NEGATIVE NG/ML (CUTOFF=100); Phencyclidine, Ur NEGATIVE NG/ML (CUTOFF=25); Phencyclidine,Ur GC/MS DNR NG/ML (CUTOFF=25)
[2019-02-14 07:17] LABS: Hemoglobin 13.2 g/dL (12.0-16.0); Mean Corpuscular Hgb Conc 34.7 g/dL (32-36); Mean Corpuscular Volume 96.7 fL (80-100); Mean Platelet Volume 11.1 fL (7.4-10.4); Platelet Count 169 K/uL (130-400); RDW Coefficient of Variation 13.4 % (11.5-14.5); RDW Standard Deviation 47.7 fL (36.4-46.3); Red Blood Count 3.93 M/uL (4.2-5.4)
[2019-02-14 07:46] LABS: Calcium 8.4 mg/dl (8.5-10.1); Est GFR (African American) 58.6; Est GFR (Non-African American) 50.6; Potassium 3.4 mmol/L (3.5-5.1)
[2019-02-14 08:09] LABS: Troponin I 0.259 ng/ml (0-0.045)
[2019-02-14] MEDS: AMLODIPINE BESYLATE 5 MG TAB PO SCH (08:57)
[2019-02-14] MEDS: METOPROLOL TARTRATE 50 MG TAB PO SCH (08:58)
[2019-02-14] MEDS ORDERED: AMLODIPINE BESYLATE 5 MG TAB PO STA (09:42)
[2019-02-14] MEDS ORDERED: POTASSIUM CHLORIDE 10 MEQ TABCR PO STA (09:42)
[2019-02-14] MEDS: SERTRALINE HCL 50 MG TABLET PO SCH (09:42)
--- NOTE | 2019-02-14 11:08 | Hospitalist Progress Note ---
Date of Service February 14, 2019 Assessment & Plan (1) Hypertensive urgency: Presents from cardiology clinic with hypertensive urgency with BP of 250/140 on admission Renal arterial duplex showed no stenosis BP has been fluctuated high Norvasc increased to 10mg daily and continue Metoprolol 50mg BID Cardiology on board Ok from cardiology standpoint to discharge home Continue monitor BP (2) Acute kidney injury: Mostly due to HTN urgency Creatinine trending down to 1.3 today Received IVF Avoid nephrotoxic agents Check BMP in 1 week Elevated troponin Initial troponin normal Mostly related to HTN urgency and ALISHA Troponin increased to 0.2 Asymptomatic Will trend troponin Will follow EKG this morning ECHO showed no wall motion abnormality with EF 55-60% Severe concentric LVH Hypokalemia K 3.4 today K replaced Monitor BMP (3) Depression: Stable. Continue Zoloft DVT Ppx: SCDs Code status: FULL PCP: Jaelyn Dispo: Possible discharge home today if repeat troponin trending down Subjective Pt was seen and examined Lying in bed with no distress with at bedside Pt said that she is very anxious to go home She said that each time they come to check her BP that makes her more anxious She said that she feels fine She denies any chest pain, palpitation, dizziness and SOB Physical Exam Vital Signs (Past 24 Hours): Last Vital Signs Temp 36.8 C 02/14/19 07:16 Pulse 60 02/14/19 08:00 Resp 18 02/14/19 07:16 BP 154/104 H 02/14/19 07:16 Pulse Ox 98 02/14/19 07:16 Physical Exam: General- No acute distress Head- atraumatic Eyes- PERRL, EOMI, ENT- oropharynx clear Neck- supple, no JVD Lungs- clear to auscultation Heart- regular rhythm; no murmur Abdomen- normal bowel sounds, soft, nontender Extremities- no calf tenderness Neuro- alert, oriented x 3; PERRL, EOMI; no facial palsy; no dysarthria Skin- warm & dry
[2019-02-14] MEDS ORDERED: LABETALOL HCL IV 5 MG/ML 20ML IV STA (12:58)
--- NOTE | 2019-02-14 14:29 | Cardiology Progress Note ---
Date of Service February 14, 2019 Assessment & Plan (1) Hypertensive urgency: (2) LVH (left ventricular hypertrophy) due to hypertensive disease: The patient's presenting blood pressure when she was admitted on 02/12/19 was 249/152 mm Hg. This was similar to the reading that have been obtained in the outpatient cardiology clinic that prompted her referral to the emergency room with a systolic blood pressure of 250 mm Hg documented at that time. I reviewed her outpatient record. Prior to when she presented to our office to reestablish on 02/12/19, her most recent cardiology visit prior to that had been in 2010. Her blood pressure regimen at that time included nifedipine 30 mg by mouth daily, labetalol 400 mg twice daily, and methyldopa 500 mg 3 times daily. Apparently more recently she has been on labetalol 200 mg twice daily, and methyldopa 500 mg 3 times daily. She believes that she discontinue the methyldopa about a week and a half ago because of unavailability of the medication. She has been followed by primary care in the intervening years, and the patient describes that her blood pressure has been well controlled. Per her outpatient documented blood pressures that I reviewed from 2013, 2014, 2016, 2018, her blood pressure has been relatively well controlled with readings often in the 130s over 80s as compared to the extremely high blood pressure was noted this admission. Although her blood pressure is trended toward improvement, her most recent reading at 1352 was 172/118 which is certainly still too high. She has had past workup for secondary causes of hypertension and at least 2 separate occasions in the early 1999 and again in 2009. Blood work including urine aldosterone and renin level, serum catecholamine screen, and a renal artery duplex performed this admission. The renal artery duplex was negative for renal artery stenosis. The blood work is currently still pending. Her toxicology screen was negative. An EKG performed as an outpatient on 08/21/10 was normal. In 2012, an EKG and been performed at the [facility] and the ST segments were normal. On presentation this hospital stay, her initial EKG on [address] changes, that have progressed to severe deep T wave inversions in the inferior and lateral leads suggestive of underlying ischemia versus LVH with strain pattern. Echocardiogram performed in 2009 documented normal myocardial thickness at that time with diastolic diameter of the septum of 1.1 cm in the posterior wall was documented to be 1.1 cm. On the most recent echocardiogram performed this admission, severe concentric left ventricular hypertrophy is present with septal thickness of 1.5 cm and posterior wall thickness of 1.5 cm with normal LV wall motion. A trace loculated lateral pericardial effusion was also noted. Therapeutics: The patient appears to have tolerated labetalol well in the past, and I think it has more benefit in terms of antihypertensive than metoprolol, so I am going to put her back on labetalol. She had apparently recently been taking 200 mg twice daily, I am going to up titrate this to the 400 mg twice daily that she had been on in the past. As documented earlier this hospital stay, methyldopa is somewhat of a poor choice. It is unavailable, and has the potential side effect of causing a pericardial effusion so this has been discontinued. She is back on calcium channel annetta with amlodipine 10 mg by mouth daily. She has a history of relative low potassium. She is already had a serum and random screening test drawn the results are not back yet. In the meantime, we will start her on low-dose Aldactone at 12.5 mg daily and will trend her cr eatinine. I am concerned that she has some degree of chronic kidney disease due to hypertension. Her urinalysis shows significant proteinuria. I have requested a microalbumin to creatinine ratio. The patient has had a mild troponin elevation since admission that trended up to 0.259 pg/ml this am and remain about the same at 0.257 ng/ml on repeat at 12:21 today. She has a family history of senile coronary disease in a grandparent. Her mother has a history of hypertension and "small coronary arteries ". The patient has an abnormal EKG, but I think it is most likely consistent with LVH with strain pattern, I think our best option is to proceed with optimizing her blood pressure. I do not think that coronary angiography is indicated at the present time, and with uncontrolled hypertension, I would be worried about potential bleeding or stroke complication and therefore conservative management is recommended. Future considerations include stress testing once her blood pressure is optimized. I am going to proceed with a screening cholesterol panel as I do not see one that has been performed in her hospital or outpatient chart. Is my opinion that the patient needs to remain in the hospital for further treatment. Her blood pressure still remains elevated. I think the mild elevation in her troponin and EKG changes are both markers that better blood pressure control is necessary. Subjective Chief complaint: Follow-up hypertension Subjective: The patient is comfortable, lying in bed. Her is visiting her. She denies any chest discomfort or headache, but did state that yesterday she had a brief interval of "tightness "in her chest. She is tearful and eager for discharge. Physical Exam Vital Signs (Past 24 Hours): Last Vital Signs Temp 36.9 C 02/14/19 11:14 Pulse 65 02/14/19 13:52 Resp 20 02/14/19 11:14 BP 172/118 H 02/14/19 13:52 Pulse Ox 97 02/14/19 11:14 Physical Exam: General: no acute distress and stated age Eyes: conjunctiva are pink and non-injected, sclera clear Neck: normal jugular venous pulse, no hepatojugular reflux Chest: normal shape and normal respiratory effort Lungs: clear to auscultation and percussion Cardiac Exam: - regular heart sounds, no murmurs, rubs, or gallops, no jugular venous distention Abdomen: abdomen soft, non-tender, no abnormal masses and no hepatosplenomegaly Extremities: no edema and no cyanosis Neuro:awake, coversant, follows commands, no focal motor deficits Psych: appropriate affect and insight. Results & Data Laboratory Results Cardiac Enzymes 02/12/19 02/13/19 02/13/19 Range/Units 10:35 05:25 16:01 Potassium 3.4 L 2.7 L D (3.5-5.1) mmol/L Creatinine 1.27 H 1.40 H (0.6-1.2) mg/dl Troponin I 0.070 H* (0-0.045) ng/ml 02/13/19 02/13/19 02/14/19 Range/Units 16:01 21:54 06:40 Potassium 3.8 D 3.4 L (3.5-5.1) mmol/L Creatinine 1.59 H 1.33 H (0.6-1.2) mg/dl Troponin I 0.071 H* 0.259 H* (0-0.045) ng/ml 02/14/19 Range/Units 12:21 Potassium (3.5-5.1) mmol/L Creatinine (0.6-1.2) mg/dl Troponin I 0.257 H* (0-0.045) ng/ml CBC 02/14/19 Range/Units 06:40 WBC 8.10 (4.8-10.8) K/uL RBC 3.93 L (4.2-5.4) M/uL Hgb 13.2 (12.0-16.0) g/dL Hct 38.0 (37-47) % Plt Count 169 (130-400) K/uL Comprehensive Metabolic Panel 02/13/19 02/13/19 02/14/19 Range/Units 16:01 21:54 06:40 Sodium 139 (136-145) mmol/L Potassium 3.8 D 3.4 L (3.5-5.1) mmol/L Chloride 108 H (98-107) mmol/L Carbon Dioxide 27 (21-32) mmol/L BUN 20 H (7-18) mg/dl Creatinine 1.59 H 1.33 H (0.6-1.2) mg/dl Glucose 89 (70-99) mg/dl Calcium 8.4 L (8.5-10.1) mg/dl Intake and Output 02/13/19 02/14/19 02/14/19 22:59 06:59 14:59 Intake Total 1420 / 2586.667 600 / 2586.667 1500 / 1500 Output Total 1425 / 2425 1000 / 2425 600 / 600 Balance -5 / 161.667 -400 / 161.667 900 / 900 Intake: IV 1000 / 1000 Nss 1000ML 1,000 ml @ 100 mls/ 1000 / 1000 hr IV .Q10H [facility] Rx#:[id number] Oral 1420 / 2485 600 / 2485 500 / 500 Output: Urine 1425 / 2425 1000 / 2425 600 / 600 Other: Weight 78.9 kg
[2019-02-14] MEDS: SPIRONOLACTONE 25 MG TAB PO SCH (16:57)
[2019-02-14 19:01] LABS: Creatinine Urine Random 53.6 mg/dl
[2019-02-14 19:12] LABS: Microalbumin Creatinine Ratio 66.6 mcg/mg (0-30); Microalbumin Urine 35.7 mg/L
[2019-02-14] MEDS: cloNIDine HCl 0.1 MG TAB PO PRN (19:54)
[2019-02-14] MEDS ORDERED: SERTRALINE HCL 50 MG TABLET PO SCH (21:00)
[2019-02-14] MEDS: LABETALOL HCL 200 MG TAB PO SCH (21:09)
[2019-02-15 07:42] LABS: BUN Creatinine Ratio 13.8 (10-20); Calcium 8.9 mg/dl (8.5-10.1); Creatinine Clr Calc Pharmacy 58.2 ml/min; Est GFR (African American) 59.7; Est GFR (Non-African American) 51.5; Potassium 3.6 mmol/L (3.5-5.1)
[2019-02-15] MEDS: SPIRONOLACTONE 25 MG TAB PO SCH (08:51)
[2019-02-15] MEDS: LABETALOL HCL 200 MG TAB PO SCH (08:52)
[2019-02-15] MEDS ORDERED: AMLODIPINE BESYLATE 5 MG TAB PO SCH (09:00)
[2019-02-15] MEDS ORDERED: SPIRONOLACTONE 25 MG TAB PO ONE (10:17)
--- NOTE | 2019-02-15 10:39 | Cardiology Progress Note ---
Date of Service February 15, 2019 Assessment & Plan (1) HTN (hypertension): Continue labetalol 400 mg twice daily. Continue amlodipine 10 mg by mouth daily. Spironolactone 12.5 mg daily was added yesterday, will increase to 25 mg daily. Screening lipid levels reveal mild elevation in LDL cholesterol 140. This need to be monitored. I am hesitant to add additional pharmacologic therapy as we already making multiple changes in order to avoid unnecessary medication side effects. As described in my progress note yesterday 02/14/19, her prior echocardiogram performed in 2009 revealed normal myocardial thickness with septal wall thickness and posterior wall thickness of 1.1 cm. Moderate concentric left ventricular hypertrophy is now present with wall thickness of 1.5 cm. I would interpret this as a marker that her blood pressure has not been well controlled in the last 9 years. She has been found to have microalbuminemia with a microalbumin to creatinine ratio of 66mcg/mg, which I think is another marker that her blood pressure requires better control. Future considerations including adding ALYSSA inhibitor or angiotensin receptor annetta for renal protection and better blood pressure control. I am hesitant to add a fourth agent however in such a short-term during his hospital stay. Patient has abnormal EKG, consistent with LVH although ischemic heart disease is another consideration. Once blood pressure is controlled, would consider combined exercise/pharmacologic nuclear stress test protocol at [facility]. I do not think she would be able to complete an exercise protocol sufficiently as I anticipate the labetalol will suppress her heart rate to an extent that the sensitivity and exercise test will be limited. (2) LVH (left ventricular hypertrophy) due to hypertensive disease: As noted above (3) Acute kidney injury: Acute kidney injury versus chronic kidney disease related to hypertension. Renal function will need to be monitored closely as will the electrolytes especially given the addition of spironolactone. As noted above, will consider adding ALYSSA inhibitor or angiotensin annetta as next agent. Patient is to walk in the hallway. As long as she feels well without dizziness or other symptoms, will plan for discharge today with close outpatient follow-up with PCP, and cardiology. Subjective Chief complaint: Follow-up hypertension Subjective: Patient is comfortable. Asystematic. Her is keeping her company at the bedside. Telemetry reveals sinus rhythm and sinus bradycardia in the range of 50-65 bpm. Blood pressures have trended toward improvement. Physical Exam Vital Signs (Past 24 Hours): Last Vital Signs Temp 36.7 C 02/15/19 08:19 Pulse 73 02/15/19 08:19 Resp 20 02/15/19 08:19 BP 162/97 H 02/15/19 08:19 Pulse Ox 98 02/15/19 08:19 Physical Exam: General: no acute distress and stated age Eyes: conjunctiva are pink and non-injected, sclera clear Neck: normal jugular venous pulse, no hepatojugular reflux Chest: normal shape and normal respiratory effort Lungs: clear to auscultation and percussion Cardiac Exam: - regular heart sounds, no murmurs, rubs, or gallops, no jugular venous distention Abdomen: abdomen soft, non-tender, no abnormal masses and no hepatosplenomegaly Musculoskeletal: no gait disturbance, no weakness Extremities: no edema and no cyanosis Neuro:awake, coversant, follows commands, no focal motor deficits Psych: appropriate affect and insight. Results & Data Laboratory Results Cardiac Enzymes 02/14/19 Range/Units 12:21 Troponin I 0.257 H* (0-0.045) ng/ml Lipids 02/15/19 Range/Units 06:50 Triglycerides 128 (0-150) mg/dl Cholesterol 233 H (0-200) mg/dl HDL Cholesterol 67 mg/dl Cholesterol/HDL Ratio 4 Comprehensive Metabolic Panel 02/15/19 Range/Units 06:50 Sodium 141 (136-145) mmol/L Potassium 3.6 (3.5-5.1) mmol/L Chloride 109 H (98-107) mmol/L Carbon Dioxide 26 (21-32) mmol/L BUN 18 (7-18) mg/dl Creatinine 1.31 H (0.6-1.2) mg/dl Glucose 90 (70-99) mg/dl Calcium 8.9 (8.5-10.1) mg/dl Intake and Output 02/14/19 02/15/19 02/15/19 22:59 06:59 14:59 Intake Total 800 / 2460 160 / 2460 Output Total 1650 / 3050 800 / 3050 Balance -850 / -590 -640 / -590 Intake: Oral 800 / 1460 160 / 1460 Output: Urine 1650 / 3050 800 / 3050 Other: Weight 79.6 kg Medications Administered Current Inpatient Medications Acetaminophen (Tylenol) 650 mg PO Q4H PRN PRN Reason: Pain or Fever Stop: 03/14/19 16:25 Last Admin: 02/13/19 07:22 Dose: 650 mg Documented by: Amlodipine Besylate (Norvasc) 10 mg PO QAM [facility] Stop: 03/17/19 08:59 Last Admin: 02/15/19 08:51 Dose: 10 mg Documented by: Labetalol HCl (Normodyne) 400 mg PO BID [facility] Stop: 03/16/19 20:59 Last Admin: 02/15/19 08:52 Dose: 400 mg Documented by: Ondansetron HCl (Zofran) 4 mg IV Q6H PRN PRN Reason: Nausea Stop: 03/14/19 16:25 Polyethylene Glycol (Miralax Powder Packet) 17 gm PO DAILY PRN PRN Reason: Constipation Stop: 03/14/19 16:25 Sertraline HCl (Zoloft) 50 mg PO HS [facility] Stop: 03/16/19 20:59 Last Admin: 02/14/19 21:10 Dose: 50 mg Documented by: Spironolactone (Aldactone) 25 mg PO QAM [facility] Stop: 03/18/19 08:59 Temazepam (Restoril) 15 mg PO HSZ PRN PRN Reason: Insomnia Stop: 03/15/19 23:29 Last Admin: 02/14/19 21:10 Dose: 15 mg Documented by:
--- NOTE | 2019-02-15 11:27 | Hospitalist Progress Note ---
Date of Service February 15, 2019 Assessment & Plan (1) Hypertensive urgency: Presents from cardiology clinic with hypertensive urgency with BP of 250/140 on admission Renal arterial duplex showed no stenosis BP has been fluctuated high She had work up done for secondary hypertension twice in the past Lab sent again for secondary HTN during this admission- pending Positive microalbuminemia BP improved today Case disccused with cardiology She was started on Labetalol 400mg BID and spironolocatone 12.5 mg yesterday Metoprolol was discontinued (once labetatol started) Norvasc increased to 10mg yesterday Ok from cardiology standpoint to discharge home Recommended to discharge on Norvasc 10mg, labetalol 400mg BID and spironolactone 25mg daily Consider to add a low dose of ACEI/ARB outpatient due to microalbuminemia Ximena wright Check BMP in 1 week Follow up with your PCP Follow up with cardiology Joan ANTHONY (2) Acute kidney injury: Mostly due to HTN urgency Creatinine trending down to 1.3 today Received IVF Avoid nephrotoxic agents Check BMP in 1 week Elevated troponin Initial troponin normal Mostly related to HTN urgency and ALISHA Troponin increased to 0.2, trending down Asymptomatic ECHO showed no wall motion abnormality with EF 55-60% Severe concentric LVH Hypokalemia K 3.6 today Monitor BMP Stable Dyslipidemia Chol 233, LDL 140 and HDL 67 Will hold on statin for now since pt already taking 3 BP meds to avoid any confusion and compliant Counseling on low cholesterol diet Check Lipid in 4 to 6 months (3) Depression: Stable. Continue Zoloft DVT Ppx: SCDs Code status: FULL Dispo: Will discharge home today Follow up with your PCP Dr. Christy Follow up with Cardiology Joan ANTHONY Subjective Pt was seen and examined Sitting in bed with no distress with at bedside Pt said that she feels fine She said that she slept well last night Denies any chest pain, palpitation, dizziness and SOB Physical Exam Vital Signs (Past 24 Hours): Last Vital Signs Temp 36.7 C 02/15/19 08:19 Pulse 73 02/15/19 08:19 Resp 20 02/15/19 08:19 BP 162/97 H 02/15/19 08:19 Pulse Ox 98 02/15/19 08:19 Physical Exam: General- No acute distress Head- atraumatic Eyes- PERRL, EOMI, ENT- oropharynx clear Neck- supple, no JVD Lungs- clear to auscultation Heart- regular rhythm; no murmur Abdomen- normal bowel sounds, soft, nontender Extremities- no calf tenderness Neuro- alert, oriented x 3; PERRL, EOMI; no facial palsy; no dysarthria Skin- warm & dry
--- NOTE | 2019-02-16 08:45 | Discharge Summary ---
Date of Service February 16, 2019 Admission HPI Per Admitting Provider This is a 38-year-old female with a PMH of hypertension and depression who presents from cardiology clinic with hypertensive urgency/emergency. Patient with long-standing history of hypertension for the past 20 years. Renal artery duplex was performed in 2006, which was normal. Has been maintained on methyldopa and labetalol for the past 7 years successfully, until 3 weeks ago when methyldopa was on back order. Patient does not check blood pressure at home but went to clinic appointment today to discuss antihypertensive medication and BP was found to be 250/140 with similar repeat pressures. Denies any heada martina, vision changes, chest pain or lower extremity edema. An EKG was performed in clinic, which showed normal sinus rhythm with inferior T wave depression/inversion due to possible strain. Patient was sent to ED for further treatment of blood pressure and EKG changes. Patient is prescribed labetalol 200 twice daily but has only been taking 200 mg at night. Reports trying metoprolol in the past as well as lisinopril, which was discontinued due to at that time. Was given Clonidine 0.1mg PO in the ED as well as IV Labetalol 10mg x 1. Repeat BP was 196/122. Endorsing mild frontal headache initially but it has since improved. Denies lightheadedness, visual changes, chest pain, shortness of breath, nausea, vomiting, abdominal pain or lower extremity swelling. Admission Exam Per Admitting Provider General Appearance: WD/WN, no apparent distress Head: normocephalic, atraumatic Eyes: normal inspection, PERRL, EOMI ENT: hearing grossly normal, pharynx normal (moist mucous membranes) Neck: supple, no JVD, no adenopathy Respiratory/Chest: lungs clear to auscultation. No wheezes, rales or rhonci. No respiratory distress or accessory muscle use Cardiovascular: regular rate, rhythm, no murmur, normal peripheral pulses Abdomen/GI: normal bowel sounds, soft, non-tender to palpation Extremities/Musculoskelatal: normal inspection, no calf tenderness, normal capillary refill, no pedal edema Neurologic/Psych: alert, normal mood/affect, oriented x 3 Skin: normal color, warm/dry Principal Diagnosis Hypertensive Urgency ALISHA Dyslipidemia Elevated troponin Discharge Exam General- No acute distress Head- atraumatic Eyes- PERRL, EOMI, ENT- oropharynx clear Neck- supple, no JVD Lungs- clear to auscultation Heart- regular rhythm; no murmur Abdomen- normal bowel sounds, soft, nontender Extremities- no calf tenderness Neuro- alert, oriented x 3; PERRL, EOMI; no facial palsy; no dysarthria Skin- warm & dry Discharge Data Allergies Allergy/AdvReac Type Severity Reaction Status Date / Time No Known Allergies Allergy Unverified 02/12/19 10:21 Consultations 02/12/19 11:44 ED Decision to Admit Stat 02/13/19 07:48 Consult Cardiology Routine Ordered Studies 02/12/19 16:28 US duplex renal artery Routine US duplex renal artery CLINICAL HISTORY: hypertension COMPARISON STUDY: Abdomen and pelvis CT 10/05/2017. FINDINGS: The right kidney measures 9.9 cm in the left kidney measures 10.8 cm. No hydronephrosis. The resistive indices within the bilateral renal arcuate arteries are within normal limits. The bilateral renal veins are patent. The peak systolic velocity within the right renal artery was 159 cm/s and the left renal artery was 137 cm/s. A 4.5 cm subtle hypoechoic region within the right hepatic lobe. This favors focal fatty sparing. No definite hepatic mass estefanía ntified. The hepatic vessels appear to traverse through this hypoechoic area. IMPRESSION: No evidence for renal artery stenosis. Electronically signed by: Herbie Strange M.D. 02/13/2019 7:30 AM Dictated: 02/13/19 0726 Transcribed: 02/13/19725 XR chest 1V portable CLINICAL HISTORY: Chest Pain dyspnea COMPARISON STUDY: No previous studies for comparison. FINDINGS: The bones soft tissues and hemidiaphragms are normal. The cardiomediastinal silhouette is normal. The lungs are clear. The pulmonary vasculature is normal. IMPRESSION: Negative chest. The above report was generated using voice recognition software. It may contain grammatical, syntax or spelling errors. Electronically signed by: Diego Ramey M.D. 02/12/2019 10:58 AM Dictated: 02/12/19 1058 Transcribed: 02/12/19 1058 Hospital Course (1) Hypertensive urgency: Presents from cardiology clinic with hypertensive urgency with BP of 250/140 on admission Renal arterial duplex showed no stenosis BP has been fluctuated high She had work up done for secondary hypertension twice in the past Lab sent again for secondary HTN during this admission- pending Positive microalbuminemia BP improved today Case disccused with cardiology She was started on Labetalol 400mg BID and spironolocatone 12.5 mg yesterday Metoprolol was discontinued (once labetatol started) Norvasc increased to 10mg yesterday Ok from cardiology standpoint to discharge home Recommended to discharge on Norvasc 10mg, labetalol 400mg BID and spironolactone 25mg daily Consider to add a low dose of ACEI/ARB outpatient due to microalbuminemia Ximena wright Check BMP in 1 week Follow up with your PCP Follow up with cardiology Joan ANTHONY (2) Acute kidney injury: Mostly due to HTN urgency Creatinine trending down to 1.3 today Received IVF Avoid nephrotoxic agents Check BMP in 1 week Elevated troponin Initial troponin normal Mostly related to HTN urgency and ALISHA Troponin increased to 0.2, trending down Asymptomatic ECHO showed no wall motion abnormality with EF 55-60% Severe concentric LVH Hypokalemia K 3.6 today Monitor BMP Stable Dyslipidemia Chol 233, LDL 140 and HDL 67 Will hold on statin for now since pt already taking 3 BP meds to avoid any confusion and compliant Counseling on low cholesterol diet Check Lipid in 4 to 6 months (3) Depression: Stable. Continue Zoloft DVT Ppx: SCDs Code status: FULL Dispo: Will discharge home today Follow up with your PCP Dr. Christy Follow up with Cardiology Joan ANTHONY Total Time Total Time Spent Total Time Spent (In Minutes): 35 minutes Total Time Includes: Examination of the Patient, Discharge Planning, Medication Reconciliation, Communication With Other Providers and Other Discharge Plan Discharge Items Patient Disposition: Home - Self-Care Reason For Visit: HYPERTENSIVE URGENCY Discharge Diagnosis: Hypertensive Urgency ALISHA Dyslipidemia Elevated troponin Discharge Goals: Decrease discomfort, Improve disease control, Increase independence and Improve nutritional status Activity: Resume your previous activity Activity Comment: TOLERATED Non-emergency contact: Primary Care Provider Call non-emergency contact if: you have any medication questions Follow-up/Referrals: Sadi Christy MD [Primary Care Provider] - Diet: Low Sodium (2gm) Addtl Provider Instructions: Follow up with your primary care provider within 1 week (Please call to schedule follow up appointment) Follow up with cardiology with Joan ANTHONY in 1 - 2 weeks (Please call to schedule follow up appointment) Follow up a low salt diet and low cholesterol diet Monitor your blood pressure and bring your blood pressure log at your next appointment with your physician Check BMP in 1 week to monitor electrolytes and kidney function Labetalol increased to 400mg twice a day Prescriptions: New amlodipine 10 mg tablet 10 mg PO DAILY Qty: 30 RF: 0 spironolactone 25 mg Tablet 25 mg PO QAM 30 Days Qty: 30 RF: 0 labetalol 200 mg Tablet 400 mg PO BID 30 Days Qty: 120 RF: 0 Continued sertraline [Zoloft] 100 mg Tablet 50 mg PO DAILY RF: 0 Stand-Alone Forms: [facility] Discharge Orders: Discharge Order (Routine); Ordered 02/15/19 Ordered By: Katie Zamora Admission Data Admit Date/Time: 02/12/19 13:45 Attending Provider: Katie Zamora Admit Provider: Katie Zamora Primary Care Provider: Sadi Christy Other Providers: Trevon Jason Wilkerson Service: Telemetry Other Interventions: Discharge Summary Assessment (RN) Last Done: 02/15/19 12:11 DC Date/Time DO NOT enter until pt leaves facility: 02/15/19 14:24
[2019-02-16] MEDS ORDERED: SPIRONOLACTONE 25 MG TAB PO SCH (09:00)
[2019-02-17 12:30] LABS: Metanephrine, Plasma 28 pg/mL (<=57); Normetanephrine Plasma 63 pg/mL (<=148); Total Metanephrine Plasma 91 pg/mL (<=205)
== END 2019-02-15 14:24 | disposition home or self-care (01) | DRG 683 ==
LOC: ED 09:51 → 2W 13:45